=== PATIENT | female | born 1965 | race Caucasian/White ===

== ENCOUNTER 2018-07-13 15:24 | Inpatient (IN) | payer OTHER ==
[~2018-07-13] VITALS: Ht 157.5 cm; Wt 107.6 kg
[~2018-07-13 15:24] MED LIST: AMOX1TAB61 PO; MIDAZOLAM 1 MG/ML, 5ML ONE; PROPOFOL 10 MG/ML, 100ML IV ONE; ROCURONIUM 10 MG/ML,10ML ONE
[2018-07-13] MEDS ORDERED: ALBUTEROL/IPRATROPIUM 2.5MG/0.5MG, 3 ML NPPB PRN (15:30)
[2018-07-13] MEDS ORDERED: ALBUTEROL/IPRATROPIUM 2.5MG/0.5MG, 3 ML ONE (15:42)
[2018-07-13 15:54] LABS: BASOPHILS # (AUTO) 0.09 x10^3/uL (0-0.1); BASOPHILS % (AUTO) 1 % (0-1); EOSINOPHILS # (AUTO) 0.35 x10^3/uL (0-0.4); EOSINOPHILS % (AUTO) 3 % (1-7); LYMPHOCYTES % (AUTO) 23 % (22-44); MD NO; MEAN CORPUSCULAR HEMOGLOBIN 30.1 pg (27.0-34.8); MEAN CORPUSCULAR HGB CONC 32.9 g/dL (32.4-35.8); MEAN CORPUSCULAR VOLUME 91.4 fL (80-100); MEAN PLATELET VOLUME 8.1 fL (7.4-10.4); MONOCYTES # (AUTO) 0.85 x10^3/uL (0.2-0.8); MONOCYTES % (AUTO) 7 % (2-9); NEUTROPHILS # (AUTO) 7.59 x10^3/uL (1.8-6.8); NEUTROPHILS % (AUTO) 66 % (42-75); PLATELET COUNT 342 x10^3/uL (130-400); RED BLOOD COUNT 4.91 x10^6/uL (3.82-5.3); RED CELL DISTRIBUTION WIDTH 15.2 % (9.6-15.2)
[2018-07-13] MEDS ORDERED: methylPREDNISolone SOD SUCC 125 MG/2 ML ONE (15:54)
[2018-07-13] MEDS ORDERED: LORazepam 2 MG/ML, 1ML ONE (15:54)
[2018-07-13] MEDS ORDERED: ALBUTEROL 0.5%, 20ML ONE (15:56)
[2018-07-13] MEDS ORDERED: LORazepam 2 MG/ML, 1ML IVPush ONE (16:00)
[2018-07-13] MEDS ORDERED: methylPREDNISolone SOD SUCC 125 MG/2 ML IVPush ONE (16:00)
[2018-07-13] MEDS ORDERED: MAGNESIUM SULFATE PMX 2GM/50ML 50 ML IV ONE (16:00)
[2018-07-13 16:02] LABS: ALBUMIN 3.5 g/dL (3.4-5.0); ANION GAP 9 mmol/L (5-15); CALCIUM 8.7 mg/dL (8.5-10.1); CHLORIDE 111 mmol/L (98-107); CREATININE 1.47 mg/dL (0.55-1.02)
[2018-07-13 16:06] LABS: TROPONIN I < 0.015 ng/mL (0.000-0.045)
[2018-07-13] MEDS ORDERED: Albuterol Continuous Neb. Aerogen Syringe 50mg/60ml INLINE PRN (16:30)
[2018-07-13] MEDS ORDERED: ALBUTEROL 0.5%, 20ML NPPBCONT SCH (16:30)
[2018-07-13] MEDS ORDERED: SODIUM CHLORIDE FLUSH 10ML SYR IVF PRN (17:30)
[2018-07-13] MEDS ORDERED: ACETAMINOPHEN 325 MG TABLET PO PRN (18:00)
[2018-07-13] MEDS ORDERED: MIDAZOLAM 1 MG/ML, 5ML IVPush ONE (18:00)
[2018-07-13] MEDS ORDERED: DOCUSATE 100 MG CAPSULE PO PRN (18:00)
[2018-07-13] MEDS ORDERED: BISACODYL 10 MG SUPP PR PRN ×2 (18:00→18:30)
[2018-07-13] MEDS ORDERED: hydrALAzine 20 MG/ML, 1ML IVPush PRN (18:00)
[2018-07-13] MEDS ORDERED: ROCURONIUM 10 MG/ML,10ML IVPush ONE (18:02)
[2018-07-13] MEDS ORDERED: FENTANYL PF 100 MCG/2ML ONE (18:11)
[2018-07-13 18:12] LABS: RAPID INFLUENZA A Negative (Negative); RAPID INFLUENZA B Negative (Negative)
[2018-07-13] MEDS ORDERED: LACTULOSE 20 GM/30 ML UDC NG PRN (18:30)
[2018-07-13] MEDS ORDERED: PHARMACY MAY ADJ FOR RENAL FX MC SCH (18:30)
[2018-07-13] MEDS ORDERED: GLUCAGON 1 MG IM PRN (18:30)
[2018-07-13] MEDS ORDERED: SENNOSIDES 8.8 MG/5 ML ORAL SOL NG PRN (18:30)
[2018-07-13] MEDS ORDERED: SENNA/DOCUSATE TABLET NG PRN (18:30)
[2018-07-13] MEDS ORDERED: DEXTROSE 50%, 50ML SYRINGE IVPush PRN (18:30)
[2018-07-13] MEDS ORDERED: FENTANYL PF 100 MCG/2ML IV ONE (18:30)
[2018-07-13] MEDS ORDERED: LIDOCAINE-MPF 1%, 2ML ENDO PRN (18:30)
[2018-07-13] MEDS ORDERED: DEXTROSE 4 GM TAB.CHEW PO PRN (18:30)
[2018-07-13 18:36] LABS: MICROSCOPIC INDICATED
[2018-07-13] MEDS: methylPREDNISolone SOD SUCC 125 MG/2 ML IVPush SCH (18:37)
[2018-07-13] MEDS: HEPARIN 5,000 UNITS/ML, 1ML SQ SCH (18:37)
[2018-07-13] MEDS: SODIUM CHLORIDE 0.9% 1,000 ML IV SCH (18:37)
[2018-07-13 18:44] LABS: CULTURE INDICATED? NO
[2018-07-13 18:45] LABS: BARBITURATE SCREEN, URINE Negative (Negative); BENZODIAZEPINE SCREEN, URINE Positive (Negative); CANNABINOID SCREEN, URINE Negative (Negative); COCAINE SCREEN, URINE Negative (Negative); METHADONE SCREEN, URINE Negative (Negative)
[2018-07-13] MEDS: MIDAZOLAM HCL 25 MG in SODIUM CHLORIDE 0.9% 245 ML IV PRN (18:45)
[2018-07-13 18:47] LABS: AMPHETAMINE SCREEN, URINE Positive (Negative); OPIATE SCREEN, URINE Negative (Negative)
[2018-07-13] MEDS: PROPOFOL 100 ML IV PRN (19:34)
[2018-07-13] MEDS: QUETIAPINE 25MG TABLET PO SCH (19:35)
[2018-07-13] MEDS: SODIUM CHLORIDE FLUSH 10ML SYR IVF SCH (19:36)
[2018-07-13] MEDS: DOXYCYCLINE 100 MG in DEXTROSE 5% 250 ML IV SCH (20:00)
[2018-07-13] MEDS: ALBUTEROL/IPRATROPIUM 2.5MG/0.5MG, 3 ML INLINE SCH (20:21)
[2018-07-13] MEDS ORDERED: INSULIN LISPRO 100 UNITS/ML, PEN SQ-INSULIN SCH (21:00)
[2018-07-13] MEDS ORDERED: FENTANYL PF 100 MCG/2ML IVPush ONE (22:00)
[2018-07-13] MEDS ORDERED: FENTANYL PF 2,500 MCG in SODIUM CHLORIDE 0.9% 200 ML IV PRN (22:00)
[2018-07-14] MEDS: INSULIN LISPRO 100 UNITS/ML, PEN SQ-INSULIN SCH ×4 (00:03→17:32)
[2018-07-14] MEDS: PROPOFOL 100 ML IV PRN ×5 (00:04→23:31)
[2018-07-14] MEDS: methylPREDNISolone SOD SUCC 125 MG/2 ML IVPush SCH ×4 (00:06→17:54)
[2018-07-14] MEDS: ALBUTEROL/IPRATROPIUM 2.5MG/0.5MG, 3 ML INLINE SCH ×7 (00:36→22:30)
[2018-07-14] MEDS: HEPARIN 5,000 UNITS/ML, 1ML SQ SCH ×3 (02:05→17:47)
[2018-07-14] MEDS: SODIUM CHLORIDE 0.9% 1,000 ML IV SCH ×3 (02:32→23:31)
[2018-07-14] MEDS: QUETIAPINE 25MG TABLET PO SCH ×3 (03:47→19:29)
[2018-07-14] MEDS: MIDAZOLAM HCL 25 MG in SODIUM CHLORIDE 0.9% 245 ML IV PRN (03:47)
[2018-07-14 04:00] VITALS: BP 145/83
[2018-07-14 04:53] LABS: ALANINE AMINOTRANSFERASE 32 U/L (12-78); ALBUMIN 3.1 g/dL (3.4-5.0); ANION GAP 10 mmol/L (5-15); CHLORIDE 113 mmol/L (98-107); CREATININE 1.09 mg/dL (0.55-1.02)
[2018-07-14 04:57] LABS: BASOPHILS # (AUTO) 0.01 x10^3/uL (0-0.1); BASOPHILS % (AUTO) 0 % (0-1); EOSINOPHILS % (AUTO) 0 % (1-7); LYMPHOCYTES # (AUTO) 0.66 x10^3/uL (1-3.4); LYMPHOCYTES % (AUTO) 7 % (22-44); MD NO; MEAN CORPUSCULAR HEMOGLOBIN 30.5 pg (27.0-34.8); MEAN CORPUSCULAR VOLUME 92.4 fL (80-100); MEAN PLATELET VOLUME 8.2 fL (7.4-10.4); MONOCYTES # (AUTO) 0.05 x10^3/uL (0.2-0.8); MONOCYTES % (AUTO) 1 % (2-9); NEUTROPHILS # (AUTO) 8.19 x10^3/uL (1.8-6.8); NEUTROPHILS % (AUTO) 92 % (42-75); PLATELET COUNT 281 x10^3/uL (130-400); RED BLOOD COUNT 4.44 x10^6/uL (3.82-5.3); RED CELL DISTRIBUTION WIDTH 15.4 % (9.6-15.2)
[2018-07-14 05:04] LABS: ALKALINE PHOSPHATASE 94 U/L (45-117); BILIRUBIN,TOTAL 0.2 mg/dL (0.2-1.0); TOTAL PROTEIN 7.4 g/dL (6.4-8.2)
[2018-07-14] MEDS: DOXYCYCLINE 100 MG in DEXTROSE 5% 250 ML IV SCH ×2 (05:58→17:45)
[2018-07-14] MEDS: PANTOPRAZOLE 40 MG IV IVPush SCH (07:48)
[2018-07-14] MEDS: SODIUM CHLORIDE FLUSH 10ML SYR IVF SCH ×2 (09:00→20:28)
[2018-07-14] MEDS ORDERED: DEXMEDETOMIDINE 1,000 MCG in SODIUM CHLORIDE 0.9% 240 ML IV PRN (15:30)
[2018-07-15] MEDS: methylPREDNISolone SOD SUCC 125 MG/2 ML IVPush SCH ×4 (00:05→18:07)
[2018-07-15] MEDS: INSULIN LISPRO 100 UNITS/ML, PEN SQ-INSULIN SCH ×5 (00:06→23:41)
[2018-07-15] MEDS: HEPARIN 5,000 UNITS/ML, 1ML SQ SCH ×3 (02:13→18:07)
[2018-07-15] MEDS: QUETIAPINE 25MG TABLET PO SCH ×2 (02:13→11:00)
[2018-07-15] MEDS: ALBUTEROL/IPRATROPIUM 2.5MG/0.5MG, 3 ML INLINE SCH (02:30)
[2018-07-15 04:43] LABS: ALANINE AMINOTRANSFERASE 25 U/L (12-78); ALBUMIN 2.7 g/dL (3.4-5.0); ANION GAP 10 mmol/L (5-15); CHLORIDE 114 mmol/L (98-107); CREATININE 1.28 mg/dL (0.55-1.02)
[2018-07-15 04:46] LABS: ALKALINE PHOSPHATASE 75 U/L (45-117); BILIRUBIN,TOTAL 0.4 mg/dL (0.2-1.0); TOTAL PROTEIN 6.5 g/dL (6.4-8.2)
[2018-07-15 05:07] LABS: BASOPHILS # (AUTO) 0.03 x10^3/uL (0-0.1); BASOPHILS % (AUTO) 0 % (0-1); EOSINOPHILS % (AUTO) 0 % (1-7); LYMPHOCYTES % (AUTO) 6 % (22-44); MD SCAN; MEAN CORPUSCULAR HEMOGLOBIN 30.4 pg (27.0-34.8); MEAN CORPUSCULAR HGB CONC 33.1 g/dL (32.4-35.8); MEAN CORPUSCULAR VOLUME 91.8 fL (80-100); MEAN PLATELET VOLUME 8.4 fL (7.4-10.4); MONOCYTES # (AUTO) 0.55 x10^3/uL (0.2-0.8); MONOCYTES % (AUTO) 3 % (2-9); NEUTROPHILS # (AUTO) 14.63 x10^3/uL (1.8-6.8); NEUTROPHILS % (AUTO) 91 % (42-75); PLATELET COUNT 237 x10^3/uL (130-400); RED BLOOD COUNT 4.42 x10^6/uL (3.82-5.3); RED CELL DISTRIBUTION WIDTH 15.1 % (9.6-15.2)
[2018-07-15] MEDS: DOXYCYCLINE 100 MG in DEXTROSE 5% 250 ML IV SCH ×2 (05:31→18:07)
[2018-07-15] MEDS ORDERED: ALBUTEROL/IPRATROPIUM 2.5MG/0.5MG, 3 ML INLINE SCH (07:00)
[2018-07-15] MEDS ORDERED: CALCIUM GLUCONATE 4.6 MEQ in SODIUM CHLORIDE 0.9% 50 ML IV ONE (07:30)
[2018-07-15] MEDS: ALBUTEROL/IPRATROPIUM 2.5MG/0.5MG, 3 ML NPPB SCH ×3 (09:44→19:33)
[2018-07-15] MEDS: PANTOPRAZOLE 40 MG IV IVPush SCH (10:08)
[2018-07-15] MEDS: SODIUM CHLORIDE FLUSH 10ML SYR IVF SCH ×2 (10:08→23:40)
[2018-07-15] MEDS: SODIUM CHLORIDE 0.9% 1,000 ML IV SCH (10:09)
[2018-07-16] MEDS: methylPREDNISolone SOD SUCC 125 MG/2 ML IVPush SCH ×3 (00:23→12:12)
[2018-07-16] MEDS: HEPARIN 5,000 UNITS/ML, 1ML SQ SCH (02:03)
[2018-07-16 05:02] LABS: BASOPHILS # (AUTO) 0.01 x10^3/uL (0-0.1); BASOPHILS % (AUTO) 0 % (0-1); EOSINOPHILS % (AUTO) 0 % (1-7); LYMPHOCYTES # (AUTO) 0.82 x10^3/uL (1-3.4); LYMPHOCYTES % (AUTO) 5 % (22-44); MD NO; MEAN CORPUSCULAR HEMOGLOBIN 30.7 pg (27.0-34.8); MEAN CORPUSCULAR HGB CONC 33.3 g/dL (32.4-35.8); MEAN CORPUSCULAR VOLUME 92.2 fL (80-100); MEAN PLATELET VOLUME 8.1 fL (7.4-10.4); MONOCYTES # (AUTO) 0.52 x10^3/uL (0.2-0.8); MONOCYTES % (AUTO) 3 % (2-9); NEUTROPHILS # (AUTO) 14.46 x10^3/uL (1.8-6.8); NEUTROPHILS % (AUTO) 92 % (42-75); PLATELET COUNT 260 x10^3/uL (130-400); RED BLOOD COUNT 4.53 x10^6/uL (3.82-5.3); RED CELL DISTRIBUTION WIDTH 14.9 % (9.6-15.2)
[2018-07-16 05:13] LABS: ANION GAP 7 mmol/L (5-15); CALCIUM 8.4 mg/dL (8.5-10.1); CHLORIDE 111 mmol/L (98-107)
[2018-07-16 05:16] LABS: CREATININE 0.99 mg/dL (0.55-1.02); TRIGLYCERIDES 76 mg/dL (50-200)
[2018-07-16] MEDS: INSULIN LISPRO 100 UNITS/ML, PEN SQ-INSULIN SCH (05:30)
[2018-07-16] MEDS: DOXYCYCLINE 100 MG in DEXTROSE 5% 250 ML IV SCH (06:48)
[2018-07-16] MEDS: ALBUTEROL/IPRATROPIUM 2.5MG/0.5MG, 3 ML NPPB SCH ×2 (07:00→11:00)
[2018-07-16] MEDS: AMLODIPINE 5 MG TABLET PO SCH ×2 (08:56→21:08)
[2018-07-16] MEDS: PANTOPRAZOLE 40 MG IV IVPush SCH (08:56)
[2018-07-16] MEDS: SODIUM CHLORIDE FLUSH 10ML SYR IVF SCH ×2 (08:57→21:07)
[2018-07-16] MEDS: DOXYCYCLINE 100MG TABLET PO SCH ×2 (09:00→21:08)
[2018-07-16] MEDS ORDERED: BUDESONIDE 0.5 MG/2 ML INHA HHN SCH (09:00)
[2018-07-16] MEDS: ENOXAPARIN 40 MG/0.4 ML SQ SCH (09:49)
[2018-07-16] MEDS ORDERED: ALBUTEROL SULFATE 2.5 MG/3 ML HHN SCH (11:00)
[2018-07-16 17:34] VITALS: BP 149/83
[2018-07-16 20:04] VITALS: BP 132/75
[2018-07-17 00:22] VITALS: BP 145/94
[2018-07-17 05:28] LABS: BASOPHILS # (AUTO) 0.02 x10^3/uL (0-0.1); BASOPHILS % (AUTO) 0 % (0-1); EOSINOPHILS % (AUTO) 0 % (1-7); LYMPHOCYTES # (AUTO) 1.66 x10^3/uL (1-3.4); LYMPHOCYTES % (AUTO) 11 % (22-44); MD NO; MEAN CORPUSCULAR HEMOGLOBIN 30.1 pg (27.0-34.8); MEAN CORPUSCULAR HGB CONC 32.9 g/dL (32.4-35.8); MEAN CORPUSCULAR VOLUME 91.4 fL (80-100); MEAN PLATELET VOLUME 8.2 fL (7.4-10.4); MONOCYTES # (AUTO) 1.24 x10^3/uL (0.2-0.8); MONOCYTES % (AUTO) 8 % (2-9); NEUTROPHILS # (AUTO) 12.86 x10^3/uL (1.8-6.8); NEUTROPHILS % (AUTO) 82 % (42-75); PLATELET COUNT 247 x10^3/uL (130-400); RED BLOOD COUNT 4.99 x10^6/uL (3.82-5.3); RED CELL DISTRIBUTION WIDTH 15.4 % (9.6-15.2)
[2018-07-17 05:40] LABS: ALANINE AMINOTRANSFERASE 60 U/L (12-78); ALBUMIN 3.2 g/dL (3.4-5.0); ANION GAP 7 mmol/L (5-15); CALCIUM 8.8 mg/dL (8.5-10.1); CHLORIDE 105 mmol/L (98-107); CREATININE 1.07 mg/dL (0.55-1.02)
[2018-07-17 05:42] LABS: ALKALINE PHOSPHATASE 80 U/L (45-117); BILIRUBIN,TOTAL 0.6 mg/dL (0.2-1.0); TOTAL PROTEIN 7.6 g/dL (6.4-8.2)
[2018-07-17] MEDS: ALBUTEROL/IPRATROPIUM 2.5MG/0.5MG, 3 ML NPPB PRN ×2 (06:20→10:35)
[2018-07-17 07:48] VITALS: BP 158/88
[2018-07-17] MEDS: DOXYCYCLINE 100MG TABLET PO SCH ×2 (08:37→20:55)
[2018-07-17] MEDS: AMLODIPINE 5 MG TABLET PO SCH ×2 (08:37→20:55)
[2018-07-17] MEDS: PANTOPROZOLE 40MG TABLET PO SCH (08:37)
[2018-07-17] MEDS: ENOXAPARIN 40 MG/0.4 ML SQ SCH (08:38)
[2018-07-17] MEDS: SODIUM CHLORIDE FLUSH 10ML SYR IVF SCH ×2 (09:00→20:55)
[2018-07-17 13:20] VITALS: BP 123/75
[2018-07-17] MEDS ORDERED: MAGNESIUM SULFATE PMX 2GM/50ML 50 ML IV ONE (14:00)
[2018-07-17] MEDS: ALBUTEROL/IPRATROPIUM 2.5MG/0.5MG, 3 ML NPPB SCH ×2 (14:10→20:00)
[2018-07-17] MEDS: ASPIRIN 81 MG TABLET EC PO SCH (14:30)
[2018-07-17 21:20] VITALS: BP 130/73
[2018-07-18 03:19] VITALS: BP 158/89
[2018-07-18 05:59] LABS: BASOPHILS # (AUTO) 0.05 x10^3/uL (0-0.1); BASOPHILS % (AUTO) 0 % (0-1); EOSINOPHILS # (AUTO) 0.02 x10^3/uL (0-0.4); EOSINOPHILS % (AUTO) 0 % (1-7); LYMPHOCYTES # (AUTO) 2.33 x10^3/uL (1-3.4); LYMPHOCYTES % (AUTO) 18 % (22-44); MD NO; MEAN CORPUSCULAR HEMOGLOBIN 29.8 pg (27.0-34.8); MEAN CORPUSCULAR HGB CONC 32.8 g/dL (32.4-35.8); MEAN CORPUSCULAR VOLUME 90.9 fL (80-100); MEAN PLATELET VOLUME 7.6 fL (7.4-10.4); MONOCYTES # (AUTO) 1.09 x10^3/uL (0.2-0.8); MONOCYTES % (AUTO) 9 % (2-9); NEUTROPHILS # (AUTO) 9.34 x10^3/uL (1.8-6.8); NEUTROPHILS % (AUTO) 73 % (42-75); PLATELET COUNT 258 x10^3/uL (130-400); RED BLOOD COUNT 5.27 x10^6/uL (3.82-5.3); RED CELL DISTRIBUTION WIDTH 15.3 % (9.6-15.2)
[2018-07-18 06:13] LABS: ANION GAP 7 mmol/L (5-15); CALCIUM 7.6 mg/dL (8.5-10.1); CHLORIDE 107 mmol/L (98-107)
[2018-07-18 06:17] LABS: ALANINE AMINOTRANSFERASE 104 U/L (12-78); ALKALINE PHOSPHATASE 75 U/L (45-117); BILIRUBIN,TOTAL 0.6 mg/dL (0.2-1.0); CREATININE 0.93 mg/dL (0.55-1.02); TOTAL PROTEIN 6.9 g/dL (6.4-8.2)
[2018-07-18 06:33] VITALS: BP 147/76
[2018-07-18] MEDS: ALBUTEROL/IPRATROPIUM 2.5MG/0.5MG, 3 ML NPPB SCH ×4 (07:30→18:29)
[2018-07-18] MEDS: AMLODIPINE 5 MG TABLET PO SCH ×2 (08:46→22:48)
[2018-07-18] MEDS: PANTOPROZOLE 40MG TABLET PO SCH (08:47)
[2018-07-18] MEDS: ENOXAPARIN 40 MG/0.4 ML SQ SCH (08:47)
[2018-07-18] MEDS: ASPIRIN 81 MG TABLET EC PO SCH (08:47)
[2018-07-18] MEDS: DOXYCYCLINE 100MG TABLET PO SCH ×2 (08:47→22:48)
[2018-07-18] MEDS: SODIUM CHLORIDE FLUSH 10ML SYR IVF SCH ×2 (08:48→22:45)
[2018-07-18 12:30] VITALS: BP 137/86
[2018-07-18] MEDS ORDERED: MAGNESIUM SULFATE 6 GM in SODIUM CHLORIDE 0.9% 150 ML IV ONE (15:30)
[2018-07-18 19:02] VITALS: BP 105/67
[2018-07-19 03:43] VITALS: BP 139/91
[2018-07-19 05:40] LABS: CHLORIDE 107 mmol/L (98-107)
[2018-07-19 05:46] LABS: ANION GAP 8 mmol/L (5-15); CALCIUM 7.6 mg/dL (8.5-10.1); CREATININE 0.99 mg/dL (0.55-1.02)
[2018-07-19] MEDS: ALBUTEROL/IPRATROPIUM 2.5MG/0.5MG, 3 ML NPPB SCH ×4 (06:40→20:00)
[2018-07-19 06:53] VITALS: BP 148/79
[2018-07-19] MEDS: AMLODIPINE 5 MG TABLET PO SCH ×2 (08:23→20:57)
[2018-07-19] MEDS: ENOXAPARIN 40 MG/0.4 ML SQ SCH (08:23)
[2018-07-19] MEDS: PANTOPROZOLE 40MG TABLET PO SCH (08:24)
[2018-07-19] MEDS: DOXYCYCLINE 100MG TABLET PO SCH ×2 (08:24→20:57)
[2018-07-19] MEDS: SODIUM CHLORIDE FLUSH 10ML SYR IVF SCH ×2 (08:24→20:58)
[2018-07-19] MEDS: ASPIRIN 81 MG TABLET EC PO SCH (08:24)
[2018-07-19] MEDS ORDERED: METOPROLOL TARTRATE 25 MG TABLET ONE (08:45)
[2018-07-19] MEDS: METOPROLOL TARTRATE 25 MG TABLET PO SCH ×2 (08:48→20:58)
[2018-07-19 12:50] VITALS: BP 120/77
[2018-07-19 19:56] VITALS: BP 114/72
[2018-07-19 20:53] VITALS: BP 112/57
[2018-07-20 03:27] VITALS: BP 108/62
[2018-07-20 06:15] VITALS: BP 138/82
[2018-07-20] MEDS: METOPROLOL TARTRATE 25 MG TABLET PO SCH (06:20)
[2018-07-20] MEDS: ALBUTEROL/IPRATROPIUM 2.5MG/0.5MG, 3 ML NPPB SCH (07:00)
[2018-07-20 07:05] VITALS: BP 117/75
[2018-07-20] MEDS: ASPIRIN 81 MG TABLET EC PO SCH (08:56)
[2018-07-20] MEDS: AMLODIPINE 5 MG TABLET PO SCH (08:57)
[2018-07-20] MEDS: PANTOPROZOLE 40MG TABLET PO SCH (08:57)
[2018-07-20] MEDS: DOXYCYCLINE 100MG TABLET PO SCH (08:57)
[2018-07-20] MEDS ORDERED: METO25TA35 PO (09:38)
[2018-07-20] MEDS ORDERED: DOXY100T PO (09:38)
[2018-07-20] MEDS ORDERED: ASPI81TA45 PO (09:38)
[2018-07-20] MEDS ORDERED: AMLO-150 PO (09:38)
[2018-07-20] MEDS ORDERED: ALBU90AE INH (09:38)
[2018-07-20] MEDS ORDERED: PRED5TAB PO (09:38)
[2018-07-21] MEDS ORDERED: DOXY100T PO (14:39)
[2018-07-21] MEDS ORDERED: AMOX1TAB61 PO (14:39)
[2018-07-21] MEDS ORDERED: ALBU90AE INH (14:39)
[2018-07-21] MEDS ORDERED: AMLO-150 PO (14:39)
[2018-07-21] MEDS ORDERED: METO25TA35 PO (14:39)
[2018-07-21] MEDS ORDERED: ASPI81TA45 PO (14:39)
[2018-07-21] MEDS ORDERED: PRED5TAB PO (14:39)
== END 2018-07-20 11:35 | disposition home or self-care (01) | DRG 208 ==
LOC: ED 16:31 → EDIP 17:29 → CCU 17:45 → 5SO 07-16 17:03
PROVIDERS: ADMIT Hospitalist; ATTEND Family Medicine
PROC: 5A1935Z Respiratory Ventilation, Less than 24 Consecutive Hours (ICD-10-PCS; principal; 2018-07-13)
PROC: 0BH18EZ Insertion of Endotracheal Airway into Trachea, Via Natural or Artificial Opening Endoscopic (ICD-10-PCS; 2018-07-13)
PROC: 0T9B70Z Drainage of Bladder with Drainage Device, Via Natural or Artificial Opening (ICD-10-PCS; 2018-07-13)
DX: J96.01 Acute respiratory failure with hypoxia (principal); G92 Toxic encephalopathy; J44.1 Chronic obstructive pulmonary disease with (acute) exacerbation; N17.9 Acute kidney failure, unspecified; J98.11 Atelectasis; I47.1 Supraventricular tachycardia; Z99.11 Dependence on respirator [ventilator] status; F14.90 Cocaine use, unspecified, uncomplicated; F15.90 Other stimulant use, unspecified, uncomplicated; I48.0 Paroxysmal atrial fibrillation; I10 Essential (primary) hypertension; E83.42 Hypomagnesemia; E87.5 Hyperkalemia; F17.210 Nicotine dependence, cigarettes, uncomplicated; F41.9 Anxiety disorder, unspecified; I07.1 Rheumatic tricuspid insufficiency
CPT/HCPCS: 36415; 36600; 84145; 87400; 99285; J7620; 0399T; 71045; 80048; 80053; 80307; 81001; 82040; 82803; 82962; 83735; 83880; 84100; 84132; 84443; 84478; 84484; 85025; 87040; 87070; 87081; 87205; 93005; 93306; 94002; 94003; 94640; 94644; 96374; 96375; G0378; J0610; J1644; J1650; J2250; J2704; J3010; J3475; J7060; C9113; J0360; J1815; J2060; J2930; J7030; J7050; J7512

== ENCOUNTER 2018-12-11 16:24 | Inpatient (IN) | payer MEDICAID ==
[~2018-12-11] VITALS: Ht 152.4 cm; Wt 104.8 kg
[~2018-12-11 16:24] MED LIST changes: +ALBU90AE INH; +AMLO-150 PO; +ASPI81TA45 PO; +DOXY100T PO; +METO25TA35 PO; -MIDAZOLAM 1 MG/ML, 5ML ONE; +PRED5TAB PO; -PROPOFOL 10 MG/ML, 100ML IV ONE; -ROCURONIUM 10 MG/ML,10ML ONE
[2018-12-11] MEDS ORDERED: SODIUM CHLORIDE FLUSH 10ML SYR IVF ONE (16:30)
[2018-12-11] MEDS ORDERED: methylPREDNISolone SOD SUCC 125 MG/2 ML IVP ONE (16:30)
--- NOTE | 2018-12-11 16:45 | NUR ---
BIB [facility] for SOB, hx COPD, CHF, hx intubation "years ago" per pt. Pt extremely anxious on arrival, RT at bedside, EKG complete, tech at bedside for IV start. Pt becoming calmer, able to make full sentences, pt wheezy in all lung pappas.
[2018-12-11] MEDS ORDERED: ALBUTEROL/IPRATROPIUM 2.5MG/0.5MG, 3 ML ONE (16:50)
[2018-12-11] MEDS ORDERED: methylPREDNISolone SOD SUCC 125 MG/2 ML ONE (16:50)
[2018-12-11] MEDS ORDERED: PLEASE ENTER HEIGHT AND WEIGHT MC SCH (17:00)
[2018-12-11] MEDS: ALBUTEROL/IPRATROPIUM 2.5MG/0.5MG, 3 ML NPPB SCH (17:07)
[2018-12-11 17:13] LABS: BASOPHILS # (AUTO) 0.06 x10^3/uL (0-0.1); BASOPHILS % (AUTO) 1 % (0-1); EOSINOPHILS # (AUTO) 0.25 x10^3/uL (0-0.4); EOSINOPHILS % (AUTO) 2 % (1-7); LYMPHOCYTES # (AUTO) 2.32 x10^3/uL (1-3.4); LYMPHOCYTES % (AUTO) 21 % (22-44); MD NO; MEAN CORPUSCULAR HEMOGLOBIN 29.5 pg (27.0-34.8); MEAN CORPUSCULAR HGB CONC 33.2 g/dL (32.4-35.8); MEAN PLATELET VOLUME 7.7 fL (7.4-10.4); MONOCYTES # (AUTO) 0.79 x10^3/uL (0.2-0.8); MONOCYTES % (AUTO) 7 % (2-9); NEUTROPHILS # (AUTO) 7.73 x10^3/uL (1.8-6.8); NEUTROPHILS % (AUTO) 69 % (42-75); PLATELET COUNT 300 x10^3/uL (130-400); RED BLOOD COUNT 4.85 x10^6/uL (3.82-5.3); RED CELL DISTRIBUTION WIDTH 14.8 % (9.6-15.2)
[2018-12-11 17:20] LABS: ALANINE AMINOTRANSFERASE 53 U/L (12-78); ALBUMIN 3.4 g/dL (3.4-5.0); ANION GAP 9 mmol/L (5-15); CALCIUM 8.3 mg/dL (8.5-10.1); CHLORIDE 112 mmol/L (98-107); CREATININE 1.48 mg/dL (0.55-1.02)
[2018-12-11 17:24] LABS: ALKALINE PHOSPHATASE 117 U/L (45-117); BILIRUBIN,TOTAL 0.5 mg/dL (0.2-1.0); TOTAL PROTEIN 6.9 g/dL (6.4-8.2); TROPONIN I 0.032 ng/mL (0.000-0.045)
--- NOTE | 2018-12-11 17:41 | NUR ---
Pt given ice chips per request, pt initally sleeping when RN entered room, sats remain above 94%, no obv acute resp distress noted at this time.
--- NOTE | 2018-12-11 19:03 | NUR ---
report received from galdino viveros.
--- NOTE | 2018-12-11 19:07 | NUR ---
pt provided some water at this time.
--- NOTE | 2018-12-11 20:19 | NUR ---
bedside commodo at bedside now.
--- NOTE | 2018-12-11 20:39 | NUR ---
pt using bedside commodo at this time.
--- NOTE | 2018-12-11 20:51 | NUR ---
pt resting in [facility]. all monitors in place. call light within reach. pt's aox4.
[2018-12-11] MEDS ORDERED: LORazepam 2 MG/ML, 1ML ONE (21:17)
--- NOTE | 2018-12-11 21:25 | NUR ---
pt medicated per emar. pt tolerated well. pt's aox4. resps even and unlabored.
[2018-12-11] MEDS ORDERED: LORazepam 2 MG/ML, 1ML IVPush ONE (21:30)
--- NOTE | 2018-12-11 21:35 | NUR ---
report given margi viveros. all questions answered.
[2018-12-11] MEDS ORDERED: SODIUM CHLORIDE 0.9% 1,000 ML IV SCH (21:39)
[2018-12-11 21:58] VITALS: BP 155/90
[2018-12-11] MEDS ORDERED: ONDANSETRON ODT 4 MG PO PRN (22:00)
[2018-12-11] MEDS ORDERED: LABETALOL 5MG/ML, 20ML IVPush PRN (22:00)
[2018-12-11] MEDS ORDERED: LIDODERM 5% PATCH TD PRN (22:00)
[2018-12-11] MEDS ORDERED: DOCUSATE 100 MG CAPSULE PO PRN (22:00)
[2018-12-11] MEDS ORDERED: TEMAZEPAM 15 MG CAPSULE PO PRN (22:00)
[2018-12-11] MEDS: IBUPROFEN 600 MG TABLET PO PRN (22:36)
[2018-12-12 00:14] LABS: AMPHETAMINE SCREEN, URINE Positive (Negative); BARBITURATE SCREEN, URINE Negative (Negative); BENZODIAZEPINE SCREEN, URINE Negative (Negative); CANNABINOID SCREEN, URINE Negative (Negative); COCAINE SCREEN, URINE Negative (Negative); METHADONE SCREEN, URINE Negative (Negative); OPIATE SCREEN, URINE Negative (Negative)
[2018-12-12 00:33] LABS: TROPONIN I 0.079 ng/mL (0.000-0.045)
[2018-12-12 01:30] VITALS: BP 146/81
[2018-12-12 05:30] LABS: BASOPHILS % (AUTO) 0 % (0-1); EOSINOPHILS # (AUTO) 0.02 x10^3/uL (0-0.4); EOSINOPHILS % (AUTO) 0 % (1-7); LYMPHOCYTES # (AUTO) 0.98 x10^3/uL (1-3.4); LYMPHOCYTES % (AUTO) 13 % (22-44); MD NO; MEAN CORPUSCULAR HEMOGLOBIN 29.4 pg (27.0-34.8); MEAN CORPUSCULAR HGB CONC 32.9 g/dL (32.4-35.8); MEAN CORPUSCULAR VOLUME 89.5 fL (80-100); MEAN PLATELET VOLUME 8.2 fL (7.4-10.4); MONOCYTES # (AUTO) 0.07 x10^3/uL (0.2-0.8); MONOCYTES % (AUTO) 1 % (2-9); NEUTROPHILS # (AUTO) 6.57 x10^3/uL (1.8-6.8); NEUTROPHILS % (AUTO) 86 % (42-75); PLATELET COUNT 259 x10^3/uL (130-400); RED CELL DISTRIBUTION WIDTH 15.1 % (9.6-15.2)
[2018-12-12 05:33] LABS: ANION GAP 9 mmol/L (5-15); CALCIUM 8.9 mg/dL (8.5-10.1); CHLORIDE 110 mmol/L (98-107); CREATININE 1.22 mg/dL (0.55-1.02)
[2018-12-12 05:36] LABS: TROPONIN I 0.079 ng/mL (0.000-0.045)
[2018-12-12] MEDS: ALBUTEROL SULFATE 2.5 MG/3 ML NPPB SCH ×4 (07:40→23:30)
[2018-12-12] MEDS: BUDESONIDE 0.5 MG/2 ML INHA NPPB SCH ×2 (07:40→20:43)
[2018-12-12 08:26] VITALS: BP 136/88
[2018-12-12] MEDS: AZITHROMYCIN 500 MG TABLET PO SCH (12:16)
[2018-12-12] MEDS: POTASSIUM CHLORIDE 20 MEQ TAB.ER.PRT PO SCH (12:16)
[2018-12-12] MEDS: methylPREDNISolone SOD SUCC 125 MG/2 ML IVPush SCH ×2 (12:16→18:25)
[2018-12-12 13:00] VITALS: BP 133/90
[2018-12-12] MEDS: FUROSEMIDE 20 MG/2 ML IV SCH (17:33)
[2018-12-12 18:51] VITALS: BP 136/85
[2018-12-13] MEDS: methylPREDNISolone SOD SUCC 125 MG/2 ML IVPush SCH ×2 (00:05→06:16)
[2018-12-13 01:14] VITALS: BP 136/83
[2018-12-13 07:05] VITALS: BP 173/96
[2018-12-13] MEDS: ALBUTEROL SULFATE 2.5 MG/3 ML NPPB SCH ×4 (07:10→22:09)
[2018-12-13] MEDS: BUDESONIDE 0.5 MG/2 ML INHA NPPB SCH ×2 (07:10→19:55)
[2018-12-13] MEDS: FUROSEMIDE 20 MG/2 ML IV SCH ×2 (07:44→17:29)
[2018-12-13] MEDS: AZITHROMYCIN 500 MG TABLET PO SCH (09:00)
[2018-12-13] MEDS: POTASSIUM CHLORIDE 20 MEQ TAB.ER.PRT PO SCH (09:07)
[2018-12-13 09:25] VITALS: BP 149/89
[2018-12-13] MEDS ORDERED: MAGNESIUM SULFATE PMX 2GM/50ML 50 ML IV ONE (09:30)
[2018-12-13] MEDS: methylPREDNISolone SOD SUCC 40 MG/ML IVPush SCH ×3 (09:46→21:05)
[2018-12-13 09:49] VITALS: BP 151/86
[2018-12-13 13:25] VITALS: BP 153/87
[2018-12-13 19:26] VITALS: BP 137/85
[2018-12-14 01:45] VITALS: BP 163/102
[2018-12-14] MEDS: methylPREDNISolone SOD SUCC 40 MG/ML IVPush SCH ×4 (03:32→21:18)
[2018-12-14] MEDS: ALBUTEROL SULFATE 2.5 MG/3 ML NPPB SCH ×4 (04:46→19:40)
[2018-12-14 05:39] LABS: ANION GAP 7 mmol/L (5-15); CALCIUM 9.2 mg/dL (8.5-10.1); CHLORIDE 103 mmol/L (98-107); CREATININE 1.04 mg/dL (0.55-1.02)
[2018-12-14 06:41] VITALS: BP 157/98
[2018-12-14] MEDS: FUROSEMIDE 20 MG/2 ML IV SCH ×2 (07:53→17:48)
[2018-12-14] MEDS: POTASSIUM CHLORIDE 20 MEQ TAB.ER.PRT PO SCH (09:39)
[2018-12-14] MEDS: AZITHROMYCIN 500 MG TABLET PO SCH (09:39)
[2018-12-14] MEDS ORDERED: DOXYCYCLINE 100MG TABLET PO SCH (11:00)
[2018-12-14] MEDS ORDERED: MAGNESIUM OXIDE 400 MG TABLET PO SCH (11:00)
[2018-12-14] MEDS: CEFTRIAXONE PMX 2GM/50ML 50 ML IV SCH (12:16)
[2018-12-14] MEDS: ASPIRIN 81 MG TABLET EC PO SCH (12:17)
[2018-12-14 13:53] VITALS: BP 129/84
[2018-12-14] MEDS ORDERED: LABETALOL 100 MG TABLET PO SCH (14:00)
[2018-12-14] MEDS: BUDESONIDE 0.5 MG/2 ML INHA NPPB SCH ×2 (14:20→19:41)
[2018-12-14] MEDS ORDERED: LABETALOL 100 MG TABLET ONE (15:07)
[2018-12-14 15:10] VITALS: BP 126/86
[2018-12-14] MEDS ORDERED: LABETALOL 100 MG TABLET PO ONE (15:30)
[2018-12-14] MEDS ORDERED: METOPROLOL TARTRATE 50 MG TABLET PO SCH (18:00)
[2018-12-14 18:39] VITALS: BP 107/67
[2018-12-14 18:42] LABS: MICROSCOPIC INDICATED
[2018-12-14 18:51] LABS: CULTURE INDICATED? NO
[2018-12-14] MEDS: DOXYCYCLINE 100MG TABLET PO SCH (21:17)
[2018-12-14] MEDS: MAGNESIUM OXIDE 400 MG TABLET PO SCH (21:17)
[2018-12-14] MEDS: LABETALOL 100 MG TABLET PO SCH (21:18)
[2018-12-14 21:23] VITALS: BP 105/70
[2018-12-15] MEDS: ALBUTEROL SULFATE 2.5 MG/3 ML NPPB SCH ×3 (02:45→14:27)
[2018-12-15 03:30] VITALS: BP 107/73
[2018-12-15] MEDS: methylPREDNISolone SOD SUCC 40 MG/ML IVPush SCH ×3 (04:03→16:07)
[2018-12-15 05:52] LABS: CHLORIDE 101 mmol/L (98-107)
[2018-12-15 05:57] LABS: ANION GAP 9 mmol/L (5-15); CALCIUM 8.5 mg/dL (8.5-10.1); CREATININE 1.31 mg/dL (0.55-1.02)
[2018-12-15] MEDS: ASPIRIN 81 MG TABLET EC PO SCH (06:32)
[2018-12-15] MEDS: LABETALOL 100 MG TABLET PO SCH ×2 (06:32→15:06)
[2018-12-15 07:21] VITALS: BP 123/81
[2018-12-15] MEDS: POTASSIUM CHLORIDE 20 MEQ TAB.ER.PRT PO SCH (08:36)
[2018-12-15] MEDS: DOXYCYCLINE 100MG TABLET PO SCH (08:36)
[2018-12-15] MEDS: MAGNESIUM OXIDE 400 MG TABLET PO SCH (08:36)
[2018-12-15] MEDS ORDERED: REGADENOSON 0.4 MG/5 ML SYRINGE ONE (08:51)
[2018-12-15] MEDS: BUDESONIDE 0.5 MG/2 ML INHA NPPB SCH (09:00)
[2018-12-15] MEDS: IBUPROFEN 600 MG TABLET PO PRN (11:29)
[2018-12-15] MEDS: CEFTRIAXONE PMX 2GM/50ML 50 ML IV SCH (11:37)
[2018-12-15] MEDS: FUROSEMIDE 20 MG/2 ML IV SCH ×2 (11:37→17:09)
[2018-12-15 13:30] VITALS: BP 124/84
[2018-12-15] MEDS ORDERED: POTA20TA14 PO (14:46)
[2018-12-15] MEDS ORDERED: TIOT18CA INH (14:46)
[2018-12-15] MEDS ORDERED: LABE100T6 PO (14:46)
[2018-12-15] MEDS ORDERED: FLUT1DIS3 INH (14:46)
[2018-12-15] MEDS ORDERED: PRED10TA PO (14:46)
[2018-12-15] MEDS ORDERED: ASPI81TA45 PO (14:46)
[2018-12-15] MEDS ORDERED: DOXY100T PO (14:46)
[2018-12-15] MEDS ORDERED: CEFD300C37 PO (14:46)
[2018-12-15] MEDS ORDERED: FURO-92 PO (14:46)
[2018-12-15] MEDS ORDERED: MAGN400T50 PO (14:46)
[2018-12-15 15:06] VITALS: BP 118/66
[2018-12-15] MEDS ORDERED: IPRA3AMP30 INH (16:09)
== END 2018-12-15 18:06 | disposition home or self-care (01) | DRG 682 ==
LOC: ED 17:29 → EDIP 21:09 → 4WST 21:48 → 5SO 12-14 13:38
PROVIDERS: ADMIT Family Medicine; ATTEND Internal Medicine
DX: N17.0 Acute kidney failure with tubular necrosis (principal); J96.00 Acute respiratory failure, unspecified whether with hypoxia or hypercapnia; I50.33 Acute on chronic diastolic (congestive) heart failure; F15.93 Other stimulant use, unspecified with withdrawal; I47.1 Supraventricular tachycardia; Z68.42 Body mass index [BMI] 45.0-49.9, adult; F17.200 Nicotine dependence, unspecified, uncomplicated; E83.42 Hypomagnesemia; E66.01 Morbid (severe) obesity due to excess calories; J43.9 Emphysema, unspecified; F14.10 Cocaine abuse, uncomplicated; I07.1 Rheumatic tricuspid insufficiency; Z79.899 Other long term (current) drug therapy
CPT/HCPCS: 36415; 99285; J7613; J7620; J7626; 71045; 78452; 80048; 80053; 80307; 81001; 83735; 83880; 84100; 84484; 85025; 93005; 93017; 94640; 96374; 96375; G0378; J0696; J2785; A9502; C9898; J1940; J2060; J2920; J2930; J3475; J7030; J7512

== ENCOUNTER 2019-06-18 10:12 | Inpatient (IN) | payer MEDICAID ==
[~2019-06-18] VITALS: Ht 152.4 cm; Wt 110.0 kg
[~2019-06-18 10:12] MED LIST changes: +CEFD300C37 PO; +FLUT1DIS3 INH; +FURO-92 PO; +IPRA3AMP30 INH; +LABE100T6 PO; +MAGN400T50 PO; +POTA20TA14 PO; +PRED10TA PO; +TIOT18CA INH
--- NOTE | 2019-06-18 10:59 | NUR ---
THIS IS A 53Y F THAT COMES IN FOR SOB X2 DAYS W/ COUGH, CHILLS BODY ACHES. PT REPORTS NO FLU SHOT THIS YEAR. PT CONNECTED TO ALL MONITORING CALL LIGHT WITHIN REACH. VSS. AWAITING ORDERS AT THIS TIME
[2019-06-18] MEDS ORDERED: ALBUTEROL/IPRATROPIUM 2.5MG/0.5MG, 3 ML ONE (11:23)
[2019-06-18] MEDS ORDERED: SODIUM CHLORIDE FLUSH 10ML SYR IVF ONE (11:30)
[2019-06-18] MEDS ORDERED: ALBUTEROL/IPRATROPIUM 2.5MG/0.5MG, 3 ML NPPB PRN (11:30)
[2019-06-18 11:41] LABS: BASOPHILS # (AUTO) 0.03 x10^3/uL (0-0.1); BASOPHILS % (AUTO) 0 % (0-1); EOSINOPHILS # (AUTO) 0.09 x10^3/uL (0-0.4); EOSINOPHILS % (AUTO) 1 % (1-7); LYMPHOCYTES # (AUTO) 1.02 x10^3/uL (1-3.4); LYMPHOCYTES % (AUTO) 16 % (22-44); MD NO; MEAN CORPUSCULAR HEMOGLOBIN 29.2 pg (27.0-34.8); MEAN CORPUSCULAR VOLUME 91.2 fL (80-100); MEAN PLATELET VOLUME 7.7 fL (7.4-10.4); MONOCYTES # (AUTO) 0.72 x10^3/uL (0.2-0.8); MONOCYTES % (AUTO) 11 % (2-9); NEUTROPHILS # (AUTO) 4.73 x10^3/uL (1.8-6.8); NEUTROPHILS % (AUTO) 72 % (42-75); PLATELET COUNT 232 x10^3/uL (130-400); RED BLOOD COUNT 5.05 x10^6/uL (3.82-5.3); RED CELL DISTRIBUTION WIDTH 16.8 % (9.6-15.2)
[2019-06-18 11:53] LABS: ALANINE AMINOTRANSFERASE 44 U/L (12-78); ALBUMIN 3.4 g/dL (3.4-5.0); ANION GAP 4 mmol/L (5-15); CALCIUM 8.8 mg/dL (8.5-10.1); CHLORIDE 102 mmol/L (98-107)
[2019-06-18 11:58] LABS: ALKALINE PHOSPHATASE 122 U/L (45-117); BILIRUBIN,TOTAL 0.7 mg/dL (0.2-1.0); CREATININE 1.29 mg/dL (0.55-1.02); TOTAL PROTEIN 7.8 g/dL (6.4-8.2)
[2019-06-18 12:13] LABS: RAPID INFLUENZA A Negative (Negative); RAPID INFLUENZA B Negative (Negative)
--- NOTE | 2019-06-18 12:17 | NUR ---
PT RESTING ON [employer] WATCHING TV. CALL LIGHT IN REACH. SHU ASENCIO
[2019-06-18] MEDS ORDERED: SODIUM CHLORIDE FLUSH 10ML SYR IVF PRN (13:30)
--- NOTE | 2019-06-18 13:43 | NUR ---
REPORT TO BELA DURAN. ALL QUESTIONS ANSWERED.
--- NOTE | 2019-06-18 14:23 | NUR ---
[facility] DIMMED CALL LIGHT WITHIN REACH. SHU
[2019-06-18] MEDS ORDERED: HYDROCHLOROTHIAZIDE PO (14:25)
[2019-06-18] MEDS ORDERED: ACETAMINOPHEN 325 MG TABLET PO PRN (14:30)
[2019-06-18] MEDS ORDERED: ONDANSETRON ODT 4 MG PO PRN (14:30)
[2019-06-18] MEDS ORDERED: ONDANSETRON 2MG/ML, 2ML IVPush PRN (14:30)
--- NOTE | 2019-06-18 14:47 | NUR ---
REPORT CALLED TO FLOOR RN ALL QUESTIONS ADDRESSED. PT READY FOR TRANSPORT
[2019-06-18 15:20] VITALS: BP 136/93
[2019-06-18] MEDS ORDERED: BUSP10TA PO (15:30)
[2019-06-18] MEDS: ENOXAPARIN 40 MG/0.4 ML SQ SCH (15:48)
[2019-06-18 16:36] LABS: AMPHETAMINE SCREEN, URINE Positive (Negative); BARBITURATE SCREEN, URINE Negative (Negative); BENZODIAZEPINE SCREEN, URINE Negative (Negative); CANNABINOID SCREEN, URINE Negative (Negative); COCAINE SCREEN, URINE Negative (Negative); METHADONE SCREEN, URINE Negative (Negative); OPIATE SCREEN, URINE Negative (Negative)
[2019-06-18 19:03] VITALS: BP 112/72
[2019-06-18] MEDS: BUDESONIDE 0.5 MG/2 ML INHA NPPB SCH (20:08)
[2019-06-18] MEDS: ALBUTEROL/IPRATROPIUM 2.5MG/0.5MG, 3 ML NPPB SCH (20:08)
[2019-06-18] MEDS: DOXYCYCLINE 100MG CAP PO SCH (20:43)
[2019-06-18] MEDS: BENZONATATE 100 MG CAPSULE PO PRN (22:55)
[2019-06-19 00:19] VITALS: BP 148/92
[2019-06-19] MEDS: GUAIFENESIN/DM 200-20MG, 10ML UDC PO PRN ×3 (01:10→17:32)
[2019-06-19] MEDS: ALBUTEROL/IPRATROPIUM 2.5MG/0.5MG, 3 ML NPPB SCH ×5 (02:24→21:15)
[2019-06-19] MEDS: BENZONATATE 100 MG CAPSULE PO PRN ×2 (05:46→16:05)
[2019-06-19] MEDS: ASPIRIN 81 MG TABLET EC PO SCH (05:46)
[2019-06-19 05:47] LABS: BASOPHILS # (AUTO) 0.02 x10^3/uL (0-0.1); BASOPHILS % (AUTO) 0 % (0-1); EOSINOPHILS % (AUTO) 0 % (1-7); LYMPHOCYTES # (AUTO) 1.17 x10^3/uL (1-3.4); LYMPHOCYTES % (AUTO) 19 % (22-44); MD NO; MEAN CORPUSCULAR HEMOGLOBIN 29.7 pg (27.0-34.8); MEAN CORPUSCULAR HGB CONC 32.5 g/dL (32.4-35.8); MEAN CORPUSCULAR VOLUME 91.3 fL (80-100); MEAN PLATELET VOLUME 7.9 fL (7.4-10.4); MONOCYTES # (AUTO) 0.57 x10^3/uL (0.2-0.8); MONOCYTES % (AUTO) 9 % (2-9); NEUTROPHILS # (AUTO) 4.34 x10^3/uL (1.8-6.8); NEUTROPHILS % (AUTO) 71 % (42-75); PLATELET COUNT 231 x10^3/uL (130-400); RED BLOOD COUNT 4.84 x10^6/uL (3.82-5.3); RED CELL DISTRIBUTION WIDTH 16.8 % (9.6-15.2)
[2019-06-19 05:54] LABS: ANION GAP 7 mmol/L (5-15); CALCIUM 8.9 mg/dL (8.5-10.1); CHLORIDE 103 mmol/L (98-107); CREATININE 1.18 mg/dL (0.55-1.02)
[2019-06-19 07:08] VITALS: BP 116/76
[2019-06-19] MEDS: DOXYCYCLINE 100MG CAP PO SCH ×2 (09:26→21:01)
[2019-06-19] MEDS ORDERED: POTASSIUM CHLORIDE 20 MEQ TAB.ER.PRT PO ONE ×2 (10:00→12:00)
[2019-06-19] MEDS: BUDESONIDE 0.5 MG/2 ML INHA NPPB SCH ×3 (10:52→21:15)
[2019-06-19] MEDS ORDERED: MAGNESIUM SULFATE PMX 2GM/50ML 50 ML IV ONE (12:00)
[2019-06-19] MEDS ORDERED: FUROSEMIDE 40 MG/4 ML IV ONE (12:00)
[2019-06-19] MEDS: methylPREDNISolone SOD SUCC 125 MG/2 ML IVPush SCH ×3 (12:28→23:53)
[2019-06-19 13:48] VITALS: BP 119/73
[2019-06-19] MEDS: ENOXAPARIN 40 MG/0.4 ML SQ SCH (15:20)
[2019-06-19] MEDS: FUROSEMIDE 20 MG/2 ML IV SCH (17:24)
[2019-06-19 18:47] VITALS: BP 137/82
[2019-06-19] MEDS: DIPHENHYDRAMINE 50 MG CAPSULE PO PRN (21:33)
[2019-06-20 00:35] VITALS: BP 147/85
[2019-06-20] MEDS: BENZONATATE 100 MG CAPSULE PO PRN ×2 (01:15→11:18)
[2019-06-20] MEDS: GUAIFENESIN/DM 200-20MG, 10ML UDC PO PRN ×2 (01:15→11:18)
[2019-06-20] MEDS: ALBUTEROL/IPRATROPIUM 2.5MG/0.5MG, 3 ML NPPB SCH ×4 (03:34→20:03)
[2019-06-20 06:02] LABS: BASOPHILS % (AUTO) 0 % (0-1); EOSINOPHILS % (AUTO) 0 % (1-7); LYMPHOCYTES # (AUTO) 0.85 x10^3/uL (1-3.4); LYMPHOCYTES % (AUTO) 8 % (22-44); MD NO; MEAN CORPUSCULAR HEMOGLOBIN 29.5 pg (27.0-34.8); MEAN CORPUSCULAR HGB CONC 31.8 g/dL (32.4-35.8); MEAN PLATELET VOLUME 8.3 fL (7.4-10.4); MONOCYTES # (AUTO) 0.32 x10^3/uL (0.2-0.8); MONOCYTES % (AUTO) 3 % (2-9); NEUTROPHILS # (AUTO) 9.44 x10^3/uL (1.8-6.8); NEUTROPHILS % (AUTO) 89 % (42-75); PLATELET COUNT 253 x10^3/uL (130-400); RED BLOOD COUNT 5.18 x10^6/uL (3.82-5.3)
[2019-06-20] MEDS: ASPIRIN 81 MG TABLET EC PO SCH (06:05)
[2019-06-20 06:06] LABS: ANION GAP 6 mmol/L (5-15); CALCIUM 8.9 mg/dL (8.5-10.1); CHLORIDE 105 mmol/L (98-107); CREATININE 1.09 mg/dL (0.55-1.02)
[2019-06-20] MEDS: methylPREDNISolone SOD SUCC 125 MG/2 ML IVPush SCH ×4 (06:06→23:12)
[2019-06-20 06:54] VITALS: BP 126/77
[2019-06-20] MEDS: BUDESONIDE 0.5 MG/2 ML INHA NPPB SCH ×2 (07:41→20:03)
[2019-06-20] MEDS: DOXYCYCLINE 100MG CAP PO SCH ×2 (08:43→22:07)
[2019-06-20] MEDS: FUROSEMIDE 20 MG/2 ML IV SCH ×2 (08:45→17:03)
[2019-06-20] MEDS ORDERED: MAGNESIUM SULFATE PMX 2GM/50ML 50 ML IV ONE (10:00)
[2019-06-20] MEDS: DIPHENHYDRAMINE 50 MG CAPSULE PO PRN (11:18)
[2019-06-20 12:12] VITALS: BP 144/87
[2019-06-20] MEDS: ENOXAPARIN 40 MG/0.4 ML SQ SCH (16:00)
[2019-06-20 19:08] VITALS: BP 141/91
[2019-06-21] MEDS: ALBUTEROL/IPRATROPIUM 2.5MG/0.5MG, 3 ML NPPB SCH ×2 (02:31→07:15)
[2019-06-21 03:17] VITALS: BP 141/87
[2019-06-21 05:21] LABS: BASOPHILS # (AUTO) 0.02 x10^3/uL (0-0.1); BASOPHILS % (AUTO) 0 % (0-1); EOSINOPHILS # (AUTO) 0.01 x10^3/uL (0-0.4); EOSINOPHILS % (AUTO) 0 % (1-7); LYMPHOCYTES # (AUTO) 0.93 x10^3/uL (1-3.4); LYMPHOCYTES % (AUTO) 6 % (22-44); MD NO; MEAN CORPUSCULAR HEMOGLOBIN 29.8 pg (27.0-34.8); MEAN CORPUSCULAR HGB CONC 31.9 g/dL (32.4-35.8); MEAN CORPUSCULAR VOLUME 93.4 fL (80-100); MEAN PLATELET VOLUME 8.2 fL (7.4-10.4); MONOCYTES % (AUTO) 3 % (2-9); NEUTROPHILS # (AUTO) 14.57 x10^3/uL (1.8-6.8); NEUTROPHILS % (AUTO) 92 % (42-75); PLATELET COUNT 265 x10^3/uL (130-400); RED BLOOD COUNT 5.25 x10^6/uL (3.82-5.3); RED CELL DISTRIBUTION WIDTH 17.3 % (9.6-15.2)
[2019-06-21 05:33] LABS: ANION GAP 6 mmol/L (5-15); CALCIUM 8.8 mg/dL (8.5-10.1); CHLORIDE 104 mmol/L (98-107); CREATININE 1.22 mg/dL (0.55-1.02)
[2019-06-21] MEDS: methylPREDNISolone SOD SUCC 125 MG/2 ML IVPush SCH ×3 (06:14→17:51)
[2019-06-21] MEDS: ASPIRIN 81 MG TABLET EC PO SCH (06:14)
[2019-06-21 06:33] VITALS: BP 125/82
[2019-06-21] MEDS: BUDESONIDE 0.5 MG/2 ML INHA NPPB SCH ×2 (07:15→22:20)
[2019-06-21] MEDS: DOXYCYCLINE 100MG CAP PO SCH ×2 (07:48→20:52)
[2019-06-21] MEDS: FUROSEMIDE 20 MG/2 ML IV SCH (07:48)
[2019-06-21] MEDS ORDERED: OMNIPAQUE 350 MG/ML, 150 ML BOTTLE ONE (09:12)
[2019-06-21] MEDS ORDERED: ALBUTEROL/IPRATROPIUM 2.5MG/0.5MG, 3 ML NPPB PRN (10:00)
[2019-06-21 12:40] VITALS: BP 136/78
[2019-06-21] MEDS: GUAIFENESIN/DM 200-20MG, 10ML UDC PO PRN (13:19)
[2019-06-21] MEDS: BENZONATATE 100 MG CAPSULE PO PRN ×2 (13:19→20:52)
[2019-06-21] MEDS: ENOXAPARIN 40 MG/0.4 ML SQ SCH (16:08)
[2019-06-21 19:13] VITALS: BP 145/86
[2019-06-21] MEDS: DIPHENHYDRAMINE 50 MG CAPSULE PO PRN (20:52)
[2019-06-22] MEDS: methylPREDNISolone SOD SUCC 125 MG/2 ML IVPush SCH ×4 (00:14→18:15)
[2019-06-22 00:17] VITALS: BP 129/78
[2019-06-22] MEDS: ASPIRIN 81 MG TABLET EC PO SCH (05:54)
[2019-06-22 08:36] VITALS: BP 149/82
[2019-06-22] MEDS: BUDESONIDE 0.5 MG/2 ML INHA NPPB SCH (08:45)
[2019-06-22] MEDS: DOXYCYCLINE 100MG CAP PO SCH (08:53)
[2019-06-22] MEDS ORDERED: FUROSEMIDE 20 MG/2 ML IV SCH (09:00)
[2019-06-22 13:21] VITALS: BP 156/83
[2019-06-22] MEDS: ENOXAPARIN 40 MG/0.4 ML SQ SCH (16:20)
[2019-06-22] MEDS ORDERED: PRED5TAB PO (16:49)
[2019-06-22] MEDS ORDERED: FURO-92 PO (16:49)
[2019-06-22] MEDS ORDERED: IPRA3AMP30 NPPB (16:49)
[2019-06-22] MEDS ORDERED: BUDE0.5A NPPB (16:49)
[2019-06-22] MEDS ORDERED: DOXY100T PO (16:49)
== END 2019-06-22 18:59 | disposition home or self-care (01) | DRG 291 ==
LOC: ED 13:05 → EDIP 13:06 → ED 13:26 → 4WST 15:37
PROVIDERS: ADMIT Family Medicine; ATTEND Internal Medicine
DX: I50.33 Acute on chronic diastolic (congestive) heart failure (principal); J96.20 Acute and chronic respiratory failure, unspecified whether with hypoxia or hypercapnia; N17.0 Acute kidney failure with tubular necrosis; J96.21 Acute and chronic respiratory failure with hypoxia; E66.2 Morbid (severe) obesity with alveolar hypoventilation; Z68.42 Body mass index [BMI] 45.0-49.9, adult; F15.10 Other stimulant abuse, uncomplicated; F17.210 Nicotine dependence, cigarettes, uncomplicated; I07.1 Rheumatic tricuspid insufficiency; I27.20 Pulmonary hypertension, unspecified; I35.8 Other nonrheumatic aortic valve disorders; J43.9 Emphysema, unspecified; Z99.81 Dependence on supplemental oxygen
CPT/HCPCS: 36415; 84145; 87400; J7620; J7626; 71045; 71275; 80048; 80053; 80307; 83735; 83880; 85025; 93005; 93306; 94640; G0378; J1650; J1940; Q9967; J2930; J3475; J7512

== ENCOUNTER 2019-10-06 10:56 | Inpatient (IN) | payer MEDICAID ==
[~2019-10-06] VITALS: Ht 152.4 cm; Wt 113.3 kg
[~2019-10-06 10:56] MED LIST changes: +BUDE0.5A NPPB; +BUSP10TA PO; +HYDROCHLOROTHIAZIDE PO; +IPRA3AMP30 NPPB
--- NOTE | 2019-10-06 11:42 | NUR ---
PT TO ROOM 31 PER WHEELCHAIR AND PERSONAL OXYGEN TANK. PT HAS AUDIBLE WHEEZING AND IS VERY SOB. PT HAS DIFFICULTY TALKING DUE TO THE SEVERE SOB. PT WAS SEEN LAST WEEK BY MD, AND WAS TOLD TO COME TO ED. PT REFUSED. PT DID NOT [address] OFFICER THE PREDNISONE THAT WAS ORDERED UNTIL YESTERDAY, BUT HAS NOT STARTED IT. PT HERE FOR COMPLICATIONS OF COPD AND CHF. PT ASSESSED BY MD UPON ARRIVAL, ORDERS PLACED. PT PUT IN GOWN, ATTACHED TO MONITOR AND GIVE CALL LIGHT WITH INSTRUCTIONS. IV AND LAB ORDERED. TECH IN TO START LINE AND OBTAIN LABS.
[2019-10-06] MEDS ORDERED: methylPREDNISolone SOD SUCC 125 MG/2 ML ONE ×2 (11:56→17:14)
[2019-10-06] MEDS ORDERED: ALBUTEROL 0.5%, 20ML ONE (11:57)
[2019-10-06] MEDS ORDERED: methylPREDNISolone SOD SUCC 125 MG/2 ML IV ONE (12:00)
[2019-10-06] MEDS ORDERED: SODIUM CHLORIDE FLUSH 10ML SYR IVF ONE (12:00)
--- NOTE | 2019-10-06 12:01 | NUR ---
IV MEDICATION GIVEN, RESP THERAPY AT BEDSIDE FOR AN HOUR LONG BREATHING TREATMENT.
--- NOTE | 2019-10-06 12:06 | NUR ---
ABD XRAY DELAYED UNTIL 1315 FOR RESP. TX
[2019-10-06 12:23] LABS: BASOPHILS # (AUTO) 0.04 x10^3/uL (0-0.1); BASOPHILS % (AUTO) 0 % (0-1); EOSINOPHILS # (AUTO) 0.25 x10^3/uL (0-0.4); EOSINOPHILS % (AUTO) 3 % (1-7); LYMPHOCYTES # (AUTO) 2.18 x10^3/uL (1-3.4); LYMPHOCYTES % (AUTO) 24 % (22-44); MD NO; MEAN CORPUSCULAR HEMOGLOBIN 30.5 pg (27.0-34.8); MEAN CORPUSCULAR HGB CONC 32.5 g/dL (32.4-35.8); MEAN CORPUSCULAR VOLUME 93.8 fL (80-100); MEAN PLATELET VOLUME 8.1 fL (7.4-10.4); MONOCYTES # (AUTO) 0.83 x10^3/uL (0.2-0.8); MONOCYTES % (AUTO) 9 % (2-9); NEUTROPHILS # (AUTO) 5.68 x10^3/uL (1.8-6.8); NEUTROPHILS % (AUTO) 63 % (42-75); PLATELET COUNT 306 x10^3/uL (130-400); RED BLOOD COUNT 4.79 x10^6/uL (3.82-5.3); RED CELL DISTRIBUTION WIDTH 15.9 % (9.6-15.2)
[2019-10-06 12:33] LABS: ALANINE AMINOTRANSFERASE 29 U/L (12-78); ALBUMIN 3.3 g/dL (3.4-5.0); ANION GAP 9 mmol/L (5-15); CALCIUM 8.4 mg/dL (8.5-10.1); CHLORIDE 108 mmol/L (98-107); CREATININE 1.58 mg/dL (0.55-1.02)
[2019-10-06 12:38] LABS: ALKALINE PHOSPHATASE 113 U/L (45-117); BILIRUBIN,TOTAL 0.4 mg/dL (0.2-1.0); TOTAL PROTEIN 7.6 g/dL (6.4-8.2)
--- NOTE | 2019-10-06 13:01 | NUR ---
PT REMAINS ON NEBULIZER TREATMENT. COUGHING MORE FREQUENTLY, BUT STATES "I'M STARTING TO FEEL BETTER." WILL CONTINUE TO MONITOR.
--- NOTE | 2019-10-06 14:02 | NUR ---
BREATHING TREATMENT COMPLETE. PT TO XRAY FOR ABDOMINAL FILM. PT AUDIBLE WHEEZING HAS DISAPPEARED, AND PT STATES "I FEEL SO MUCH BETTER" WILL CONTINUE TO MONITOR.
--- NOTE | 2019-10-06 14:09 | NUR ---
PT RETURNED FROM XRAY. PLACED ON 4L OXYGEN.
[2019-10-06] MEDS ORDERED: ALBUTEROL 0.5%, 20ML NPPBCONT ONE (14:30)
[2019-10-06] MEDS ORDERED: NICOTINE 14MG/24 HR PATCH.TD24 TD ONE (15:30)
[2019-10-06] MEDS ORDERED: ENOXAPARIN 30 MG/0.3 ML SQ SCH (15:30)
[2019-10-06] MEDS ORDERED: morphine SULFATE 10 MG/ML, 1ML IVPush PRN (15:30)
[2019-10-06] MEDS ORDERED: FUROSEMIDE 40 MG/4 ML IV ONE (15:30)
--- NOTE | 2019-10-06 15:30 | NUR ---
PT STABLE, REQUESTING FOOD. MD AWARE. CONTINUE TO MONITOR PATIENT.
[2019-10-06 15:42] LABS: O2 FLOW 3 L/min
--- NOTE | 2019-10-06 16:13 | NUR ---
REPORT TO FLOOR RN. PT STABLE. PT GIVEN CRACKERS AND WATER. PT VERY ANXIOUS DUE TO THE ALBUTEROL TREATMENT. PT REMAINS TACHYCARDIC.
[2019-10-06 16:45] VITALS: BP 171/98
[2019-10-06] MEDS ORDERED: ENOXAPARIN 40 MG/0.4 ML SQ SCH ×2 (17:00)
[2019-10-06] MEDS ORDERED: LORazepam 2 MG/ML, 1ML ONE (17:18)
[2019-10-06] MEDS: LORazepam 2 MG/ML, 1ML IVPush PRN (17:22)
[2019-10-06] MEDS: ALBUTEROL/IPRATROPIUM 2.5MG/0.5MG, 3 ML NPPB SCH ×2 (17:29→22:00)
[2019-10-06] MEDS ORDERED: methylPREDNISolone SOD SUCC 125 MG/2 ML IVPush ONE (17:30)
[2019-10-06] MEDS ORDERED: ALBUTEROL/IPRATROPIUM 2.5MG/0.5MG, 3 ML NPPB PRN (18:00)
[2019-10-06] MEDS ORDERED: HYDR25TA6 PO (18:21)
[2019-10-06] MEDS ORDERED: LOSA50TA14 PO (18:21)
[2019-10-06] MEDS ORDERED: FURO20TA3 PO (18:21)
[2019-10-06 20:14] VITALS: BP 141/84
[2019-10-06] MEDS: DOCUSATE 100 MG CAPSULE PO SCH (20:17)
[2019-10-06] MEDS: DOXYCYCLINE 100MG TABLET PO SCH (20:17)
[2019-10-06] MEDS: POLYETHYLENE GLYCOL 17 GM PACKET NG SCH (20:17)
[2019-10-06] MEDS: methylPREDNISolone SOD SUCC 40 MG/ML IV SCH (20:24)
[2019-10-06] MEDS: BUDESONIDE 0.5 MG/2 ML INHA NPPB SCH (21:00)
[2019-10-06] MEDS ORDERED: SODIUM CHLORIDE 0.9%, 500ML IVBOLUS ONE (21:30)
[2019-10-06] MEDS ORDERED: LORazepam 2 MG/ML, 1ML IVPush ONE (21:30)
[2019-10-07 02:20] VITALS: BP 149/90
[2019-10-07] MEDS: ALBUTEROL/IPRATROPIUM 2.5MG/0.5MG, 3 ML NPPB SCH ×6 (02:54→22:05)
[2019-10-07] MEDS: methylPREDNISolone SOD SUCC 40 MG/ML IV SCH ×3 (04:19→20:59)
[2019-10-07 05:21] LABS: MEAN CORPUSCULAR HEMOGLOBIN 30.7 pg (27.0-34.8); MEAN CORPUSCULAR HGB CONC 32.7 g/dL (32.4-35.8); MEAN CORPUSCULAR VOLUME 93.8 fL (80-100); MEAN PLATELET VOLUME 8.4 fL (7.4-10.4); PLATELET COUNT 254 x10^3/uL (130-400); RED CELL DISTRIBUTION WIDTH 16.5 % (9.6-15.2)
[2019-10-07 05:23] LABS: ANION GAP 9 mmol/L (5-15); CALCIUM 8.6 mg/dL (8.5-10.1); CHLORIDE 106 mmol/L (98-107); CREATININE 1.36 mg/dL (0.55-1.02)
[2019-10-07] MEDS: ASPIRIN 81 MG TABLET EC PO SCH (05:57)
[2019-10-07 06:09] LABS: MD SCAN
[2019-10-07 06:10] LABS: BASOPHILS # (AUTO) 0.01 x10^3/uL (0-0.1); BASOPHILS % (AUTO) 0 % (0-1); EOSINOPHILS % (AUTO) 0 % (1-7); LYMPHOCYTES # (AUTO) 0.69 x10^3/uL (1-3.4); LYMPHOCYTES % (AUTO) 6 % (22-44); MONOCYTES # (AUTO) 0.24 x10^3/uL (0.2-0.8); MONOCYTES % (AUTO) 2 % (2-9); NEUTROPHILS # (AUTO) 10.97 x10^3/uL (1.8-6.8); NEUTROPHILS % (AUTO) 92 % (42-75)
[2019-10-07] MEDS ORDERED: METOPROLOL 1 MG/ML, 5ML IVPush ONE (06:30)
[2019-10-07] MEDS: BUDESONIDE 0.5 MG/2 ML INHA NPPB SCH ×2 (07:15→19:23)
[2019-10-07] MEDS ORDERED: POTASSIUM CHLORIDE 20 MEQ TAB.ER.PRT PO ONE (08:30)
[2019-10-07 08:50] VITALS: BP 143/97
[2019-10-07] MEDS ORDERED: FUROSEMIDE 40 MG/4 ML IV SCH (09:00)
[2019-10-07] MEDS ORDERED: FLU VACC QS2019-20 36MOS UP/PF 0.5 ML IM-VACC ONE (09:00)
[2019-10-07] MEDS: DOCUSATE 100 MG CAPSULE PO SCH ×2 (09:06→20:59)
[2019-10-07] MEDS: POLYETHYLENE GLYCOL 17 GM PACKET NG SCH ×2 (09:07→20:59)
[2019-10-07 11:01] LABS: AMPHETAMINE SCREEN, URINE Positive (Negative); BARBITURATE SCREEN, URINE Negative (Negative); BENZODIAZEPINE SCREEN, URINE Negative (Negative); CANNABINOID SCREEN, URINE Negative (Negative); COCAINE SCREEN, URINE Negative (Negative); METHADONE SCREEN, URINE Negative (Negative); OPIATE SCREEN, URINE Positive (Negative)
[2019-10-07] MEDS: DOXYCYCLINE 100MG TABLET PO SCH ×2 (11:10→20:59)
[2019-10-07 13:07] VITALS: BP 123/75
[2019-10-07] MEDS: LORazepam 2 MG/ML, 1ML IVPush PRN (13:46)
[2019-10-07] MEDS ORDERED: BISACODYL 10 MG SUPP PR PRN (14:00)
[2019-10-07] MEDS: CARVEDILOL 3.125 MG TABLET PO SCH ×2 (14:21→18:25)
[2019-10-07] MEDS: SENNA/DOCUSATE TABLET PO SCH (14:45)
[2019-10-07 15:02] VITALS: BP 138/82
[2019-10-07] MEDS: DILTIAZEM 5 MG/ML, 5ML IVPush PRN ×2 (15:38→18:26)
[2019-10-07] MEDS ORDERED: HEPARIN 5,000 UNITS/ML, 1ML IV PRN (16:30)
[2019-10-07] MEDS ORDERED: HEPARIN 25,000 UNITS/250ML PMX 250 ML IV PRN (16:30)
[2019-10-07] MEDS ORDERED: HEPARIN 5,000 UNITS/ML, 1ML IV ONE (16:30)
[2019-10-07] MEDS ORDERED: OMNIPAQUE 350 MG/ML, 100ML BOTTLE ONE (18:01)
[2019-10-07 18:24] VITALS: BP 138/68
[2019-10-07 20:24] VITALS: BP 144/85
[2019-10-08 00:59] VITALS: BP 116/71
[2019-10-08] MEDS: ALBUTEROL/IPRATROPIUM 2.5MG/0.5MG, 3 ML NPPB SCH ×6 (02:34→22:16)
[2019-10-08] MEDS: methylPREDNISolone SOD SUCC 40 MG/ML IV SCH ×3 (04:36→21:40)
[2019-10-08 05:22] LABS: ANION GAP 10 mmol/L (5-15); CALCIUM 8.5 mg/dL (8.5-10.1); CHLORIDE 104 mmol/L (98-107); MEAN CORPUSCULAR HEMOGLOBIN 29.9 pg (27.0-34.8); MEAN CORPUSCULAR HGB CONC 31.9 g/dL (32.4-35.8); MEAN CORPUSCULAR VOLUME 93.8 fL (80-100); MEAN PLATELET VOLUME 8.7 fL (7.4-10.4); PLATELET COUNT 267 x10^3/uL (130-400); RED BLOOD COUNT 4.69 x10^6/uL (3.82-5.3); RED CELL DISTRIBUTION WIDTH 16.5 % (9.6-15.2)
[2019-10-08 05:24] LABS: CREATININE 1.28 mg/dL (0.55-1.02)
[2019-10-08 05:39] LABS: MD YES
[2019-10-08 05:42] LABS: ANISOCYTOSIS 1+; BAND#(MANUAL) 0.59 x10^3/uL; BANDS%(MANUAL) 3 % (0-7); LYMPH#(MANUAL) 2.18 x10^3/uL (1-3.4); LYMPHS% (MANUAL) 11 % (22-44); METAMYELOCYTES% (MANUAL) 1 % (0-1); MONOS#(MANUAL) 0.59 x10^3/uL (0.3-2.7); MONOS% (MANUAL) 3 % (2-9); NRBC % (MANUAL) 1 % (0-1); SEG#(MANUAL) 16.24 x10^3/uL (1.8-6.8); SEGS% (MANUAL) 82 % (42-75)
[2019-10-08 05:43] LABS: <PLATELET ESTIMATE> ADEQUATE; <PLT MORPHOLOGY> NORMAL PLT MORPH; POLYCHROMASIA 1+
[2019-10-08] MEDS: ASPIRIN 81 MG TABLET EC PO SCH (06:40)
[2019-10-08] MEDS: CARVEDILOL 3.125 MG TABLET PO SCH (06:40)
[2019-10-08] MEDS: BUDESONIDE 0.5 MG/2 ML INHA NPPB SCH ×2 (06:40→18:15)
[2019-10-08 07:58] VITALS: BP 145/99
[2019-10-08] MEDS: SENNA/DOCUSATE TABLET PO SCH (09:00)
[2019-10-08] MEDS: POLYETHYLENE GLYCOL 17 GM PACKET NG SCH ×2 (09:00→21:40)
[2019-10-08] MEDS: DOXYCYCLINE 100MG TABLET PO SCH ×2 (09:54→21:40)
[2019-10-08] MEDS: DOCUSATE 100 MG CAPSULE PO SCH ×2 (09:55→21:40)
[2019-10-08] MEDS: FUROSEMIDE 40 MG/4 ML IV SCH ×2 (09:56→21:40)
[2019-10-08 13:19] VITALS: BP 148/89
[2019-10-08 18:06] VITALS: BP 135/80
[2019-10-08] MEDS: CARVEDILOL 6.25 MG TABLET PO SCH (18:10)
[2019-10-08 19:04] VITALS: BP 135/80
[2019-10-09 03:11] VITALS: BP 119/80
[2019-10-09] MEDS: ALBUTEROL/IPRATROPIUM 2.5MG/0.5MG, 3 ML NPPB SCH ×5 (03:59→20:25)
[2019-10-09 05:10] LABS: BASOPHILS # (AUTO) 0.01 x10^3/uL (0-0.1); BASOPHILS % (AUTO) 0 % (0-1); EOSINOPHILS % (AUTO) 1 % (1-7); LYMPHOCYTES # (AUTO) 0.88 x10^3/uL (1-3.4); LYMPHOCYTES % (AUTO) 5 % (22-44); MD NO; MEAN CORPUSCULAR HEMOGLOBIN 30.2 pg (27.0-34.8); MEAN CORPUSCULAR HGB CONC 32.4 g/dL (32.4-35.8); MEAN CORPUSCULAR VOLUME 93.3 fL (80-100); MEAN PLATELET VOLUME 8.5 fL (7.4-10.4); MONOCYTES # (AUTO) 0.62 x10^3/uL (0.2-0.8); MONOCYTES % (AUTO) 4 % (2-9); NEUTROPHILS % (AUTO) 90 % (42-75); PLATELET COUNT 278 x10^3/uL (130-400); RED CELL DISTRIBUTION WIDTH 16.3 % (9.6-15.2)
[2019-10-09 05:14] LABS: ANION GAP 8 mmol/L (5-15); CALCIUM 8.5 mg/dL (8.5-10.1); CHLORIDE 102 mmol/L (98-107); CREATININE 1.43 mg/dL (0.55-1.02)
[2019-10-09] MEDS: CARVEDILOL 6.25 MG TABLET PO SCH (05:45)
[2019-10-09] MEDS: methylPREDNISolone SOD SUCC 40 MG/ML IV SCH ×3 (05:45→21:20)
[2019-10-09] MEDS: ASPIRIN 81 MG TABLET EC PO SCH (05:45)
[2019-10-09] MEDS: BUDESONIDE 0.5 MG/2 ML INHA NPPB SCH ×2 (06:40→20:25)
[2019-10-09 07:51] VITALS: BP 127/87
[2019-10-09] MEDS: DOXYCYCLINE 100MG TABLET PO SCH ×2 (08:55→21:20)
[2019-10-09] MEDS: DOCUSATE 100 MG CAPSULE PO SCH ×2 (08:55→21:00)
[2019-10-09] MEDS: FUROSEMIDE 40 MG/4 ML IV SCH ×2 (08:56→21:19)
[2019-10-09] MEDS: POLYETHYLENE GLYCOL 17 GM PACKET NG SCH ×2 (08:56→21:00)
[2019-10-09] MEDS: SENNA/DOCUSATE TABLET PO SCH (08:56)
[2019-10-09] MEDS ORDERED: DILTIAZEM 5 MG/ML, 5ML IVPush ONE (12:00)
[2019-10-09] MEDS: ACETAMINOPHEN 325 MG TABLET PO PRN (12:16)
[2019-10-09 12:59] VITALS: BP 131/96
[2019-10-09] MEDS: CARVEDILOL 12.5 MG TABLET PO SCH (18:12)
[2019-10-09 21:18] VITALS: BP 120/76
[2019-10-10] MEDS ORDERED: TEMAZEPAM 15 MG CAPSULE PO PRN
[2019-10-10 00:09] VITALS: BP 158/89
[2019-10-10 05:07] VITALS: BP 127/83
[2019-10-10] MEDS: methylPREDNISolone SOD SUCC 40 MG/ML IV SCH ×2 (05:09→14:01)
[2019-10-10] MEDS: ASPIRIN 81 MG TABLET EC PO SCH (05:09)
[2019-10-10] MEDS: CARVEDILOL 12.5 MG TABLET PO SCH ×2 (05:09→17:33)
[2019-10-10 05:31] LABS: BASOPHILS # (AUTO) 0.01 x10^3/uL (0-0.1); BASOPHILS % (AUTO) 0 % (0-1); EOSINOPHILS % (AUTO) 0 % (1-7); LYMPHOCYTES # (AUTO) 0.87 x10^3/uL (1-3.4); LYMPHOCYTES % (AUTO) 6 % (22-44); MD NO; MEAN CORPUSCULAR HEMOGLOBIN 30.3 pg (27.0-34.8); MEAN CORPUSCULAR HGB CONC 32.5 g/dL (32.4-35.8); MEAN CORPUSCULAR VOLUME 93.3 fL (80-100); MEAN PLATELET VOLUME 8.4 fL (7.4-10.4); MONOCYTES # (AUTO) 0.67 x10^3/uL (0.2-0.8); MONOCYTES % (AUTO) 5 % (2-9); NEUTROPHILS # (AUTO) 13.27 x10^3/uL (1.8-6.8); NEUTROPHILS % (AUTO) 90 % (42-75); PLATELET COUNT 271 x10^3/uL (130-400); RED BLOOD COUNT 4.95 x10^6/uL (3.82-5.3); RED CELL DISTRIBUTION WIDTH 16.7 % (9.6-15.2)
[2019-10-10 05:42] LABS: ANION GAP 9 mmol/L (5-15); CALCIUM 8.5 mg/dL (8.5-10.1); CHLORIDE 102 mmol/L (98-107); CREATININE 1.39 mg/dL (0.55-1.02)
[2019-10-10] MEDS: BUDESONIDE 0.5 MG/2 ML INHA NPPB SCH ×2 (06:25→19:00)
[2019-10-10] MEDS: ALBUTEROL/IPRATROPIUM 2.5MG/0.5MG, 3 ML NPPB SCH ×4 (06:25→19:00)
[2019-10-10 06:47] VITALS: BP 135/85
[2019-10-10] MEDS: DOCUSATE 100 MG CAPSULE PO SCH ×2 (10:06→21:00)
[2019-10-10] MEDS: FUROSEMIDE 40 MG/4 ML IV SCH (10:06)
[2019-10-10] MEDS: DOXYCYCLINE 100MG TABLET PO SCH ×2 (10:07→21:03)
[2019-10-10] MEDS: POLYETHYLENE GLYCOL 17 GM PACKET NG SCH ×2 (10:07→21:00)
[2019-10-10] MEDS: SENNA/DOCUSATE TABLET PO SCH (10:07)
[2019-10-10 13:18] VITALS: BP 126/68
[2019-10-10] MEDS ORDERED: FUROSEMIDE 40 MG TABLET PO SCH (17:00)
[2019-10-10] MEDS: HEPARIN 5,000 UNITS/ML, 1ML SQ SCH (17:33)
[2019-10-10 19:57] VITALS: BP 105/69
[2019-10-11] MEDS: HEPARIN 5,000 UNITS/ML, 1ML SQ SCH ×3 (01:21→17:42)
[2019-10-11 01:28] VITALS: BP 132/83
[2019-10-11 05:24] LABS: BASOPHILS # (AUTO) 0.04 x10^3/uL (0-0.1); BASOPHILS % (AUTO) 0 % (0-1); EOSINOPHILS % (AUTO) 0 % (1-7); LYMPHOCYTES # (AUTO) 1.69 x10^3/uL (1-3.4); LYMPHOCYTES % (AUTO) 11 % (22-44); MD NO; MEAN CORPUSCULAR HEMOGLOBIN 29.7 pg (27.0-34.8); MEAN CORPUSCULAR HGB CONC 31.8 g/dL (32.4-35.8); MEAN CORPUSCULAR VOLUME 93.4 fL (80-100); MEAN PLATELET VOLUME 8.3 fL (7.4-10.4); MONOCYTES # (AUTO) 1.36 x10^3/uL (0.2-0.8); MONOCYTES % (AUTO) 9 % (2-9); NEUTROPHILS # (AUTO) 12.55 x10^3/uL (1.8-6.8); NEUTROPHILS % (AUTO) 80 % (42-75); PLATELET COUNT 251 x10^3/uL (130-400); RED BLOOD COUNT 4.87 x10^6/uL (3.82-5.3); RED CELL DISTRIBUTION WIDTH 15.8 % (9.6-15.2)
[2019-10-11 05:38] VITALS: BP 138/94
[2019-10-11 05:39] LABS: ANION GAP 7 mmol/L (5-15); CALCIUM 8.2 mg/dL (8.5-10.1); CHLORIDE 101 mmol/L (98-107); CREATININE 1.32 mg/dL (0.55-1.02)
[2019-10-11] MEDS: ASPIRIN 81 MG TABLET EC PO SCH (05:40)
[2019-10-11] MEDS: CARVEDILOL 12.5 MG TABLET PO SCH ×2 (05:40→17:42)
[2019-10-11] MEDS: ALBUTEROL/IPRATROPIUM 2.5MG/0.5MG, 3 ML NPPB SCH ×4 (06:00→21:00)
[2019-10-11 06:37] VITALS: BP 127/74
[2019-10-11] MEDS: BUDESONIDE 0.5 MG/2 ML INHA NPPB SCH ×2 (07:24→21:00)
[2019-10-11] MEDS: DOCUSATE 100 MG CAPSULE PO SCH ×2 (09:00→20:26)
[2019-10-11] MEDS: SENNA/DOCUSATE TABLET PO SCH (09:00)
[2019-10-11] MEDS: POLYETHYLENE GLYCOL 17 GM PACKET NG SCH ×2 (09:00→20:26)
[2019-10-11] MEDS: FUROSEMIDE 40 MG/4 ML IV SCH (10:25)
[2019-10-11] MEDS: DOXYCYCLINE 100MG TABLET PO SCH (10:25)
[2019-10-11 12:39] VITALS: BP 114/56
[2019-10-11 18:47] VITALS: BP 106/66
[2019-10-11] MEDS: methylPREDNISolone SOD SUCC 125 MG/2 ML IV SCH (20:27)
[2019-10-12] MEDS: HEPARIN 5,000 UNITS/ML, 1ML SQ SCH ×3 (00:50→17:18)
[2019-10-12 00:55] VITALS: BP 117/82
[2019-10-12 04:48] LABS: BASOPHILS # (AUTO) 0.02 x10^3/uL (0-0.1); BASOPHILS % (AUTO) 0 % (0-1); EOSINOPHILS # (AUTO) 0.01 x10^3/uL (0-0.4); EOSINOPHILS % (AUTO) 0 % (1-7); LYMPHOCYTES # (AUTO) 0.93 x10^3/uL (1-3.4); LYMPHOCYTES % (AUTO) 8 % (22-44); MD NO; MEAN CORPUSCULAR HEMOGLOBIN 29.6 pg (27.0-34.8); MEAN CORPUSCULAR HGB CONC 32.1 g/dL (32.4-35.8); MEAN CORPUSCULAR VOLUME 92.4 fL (80-100); MEAN PLATELET VOLUME 8.3 fL (7.4-10.4); MONOCYTES # (AUTO) 0.19 x10^3/uL (0.2-0.8); MONOCYTES % (AUTO) 2 % (2-9); NEUTROPHILS # (AUTO) 11.35 x10^3/uL (1.8-6.8); NEUTROPHILS % (AUTO) 91 % (42-75); PLATELET COUNT 256 x10^3/uL (130-400); RED BLOOD COUNT 5.26 x10^6/uL (3.82-5.3); RED CELL DISTRIBUTION WIDTH 15.9 % (9.6-15.2)
[2019-10-12 05:05] LABS: CHLORIDE 101 mmol/L (98-107)
[2019-10-12 05:14] LABS: ANION GAP 8 mmol/L (5-15); CALCIUM 8.5 mg/dL (8.5-10.1); CREATININE 1.29 mg/dL (0.55-1.02)
[2019-10-12] MEDS: ASPIRIN 81 MG TABLET EC PO SCH (05:19)
[2019-10-12] MEDS: CARVEDILOL 12.5 MG TABLET PO SCH ×2 (05:20→18:39)
[2019-10-12 07:30] VITALS: BP 113/79
[2019-10-12] MEDS: ALBUTEROL/IPRATROPIUM 2.5MG/0.5MG, 3 ML NPPB SCH ×4 (07:59→20:52)
[2019-10-12] MEDS: SENNA/DOCUSATE TABLET PO SCH (09:00)
[2019-10-12] MEDS: DOCUSATE 100 MG CAPSULE PO SCH ×2 (09:00→20:51)
[2019-10-12] MEDS: POLYETHYLENE GLYCOL 17 GM PACKET NG SCH ×2 (09:00→20:51)
[2019-10-12] MEDS: BUDESONIDE 0.5 MG/2 ML INHA NPPB SCH ×2 (09:00→20:52)
[2019-10-12] MEDS: methylPREDNISolone SOD SUCC 125 MG/2 ML IV SCH ×2 (09:15→20:51)
[2019-10-12] MEDS: FUROSEMIDE 40 MG/4 ML IV SCH (09:16)
[2019-10-12 14:05] VITALS: BP 118/72
[2019-10-12 18:56] VITALS: BP 139/87
[2019-10-13 00:51] VITALS: BP 126/80
[2019-10-13] MEDS: HEPARIN 5,000 UNITS/ML, 1ML SQ SCH ×2 (01:30→10:35)
[2019-10-13] MEDS: ALBUTEROL/IPRATROPIUM 2.5MG/0.5MG, 3 ML NPPB SCH ×2 (06:00→10:22)
[2019-10-13] MEDS: CARVEDILOL 12.5 MG TABLET PO SCH (06:02)
[2019-10-13] MEDS: ASPIRIN 81 MG TABLET EC PO SCH (06:02)
[2019-10-13 06:06] LABS: ANION GAP 9 mmol/L (5-15); CALCIUM 8.5 mg/dL (8.5-10.1); CHLORIDE 100 mmol/L (98-107); CREATININE 1.34 mg/dL (0.55-1.02)
[2019-10-13 06:14] LABS: BASOPHILS # (AUTO) 0.02 x10^3/uL (0-0.1); BASOPHILS % (AUTO) 0 % (0-1); EOSINOPHILS % (AUTO) 0 % (1-7); LYMPHOCYTES # (AUTO) 0.84 x10^3/uL (1-3.4); LYMPHOCYTES % (AUTO) 5 % (22-44); MD NO; MEAN CORPUSCULAR HEMOGLOBIN 29.7 pg (27.0-34.8); MEAN CORPUSCULAR VOLUME 92.8 fL (80-100); MEAN PLATELET VOLUME 8.4 fL (7.4-10.4); MONOCYTES # (AUTO) 0.34 x10^3/uL (0.2-0.8); MONOCYTES % (AUTO) 2 % (2-9); NEUTROPHILS # (AUTO) 16.08 x10^3/uL (1.8-6.8); NEUTROPHILS % (AUTO) 93 % (42-75); PLATELET COUNT 243 x10^3/uL (130-400); RED BLOOD COUNT 5.32 x10^6/uL (3.82-5.3); RED CELL DISTRIBUTION WIDTH 15.9 % (9.6-15.2)
[2019-10-13 08:02] VITALS: BP 130/75
[2019-10-13] MEDS: BUDESONIDE 0.5 MG/2 ML INHA NPPB SCH (09:00)
[2019-10-13] MEDS: SENNA/DOCUSATE TABLET PO SCH (09:00)
[2019-10-13] MEDS: DOCUSATE 100 MG CAPSULE PO SCH (09:00)
[2019-10-13] MEDS: FUROSEMIDE 40 MG/4 ML IV SCH (09:52)
[2019-10-13] MEDS: methylPREDNISolone SOD SUCC 125 MG/2 ML IV SCH (10:07)
[2019-10-13] MEDS: POLYETHYLENE GLYCOL 17 GM PACKET NG SCH (10:13)
[2019-10-13] MEDS ORDERED: CARV12.52 PO (12:56)
[2019-10-13] MEDS ORDERED: PRED10TA PO (12:56)
[2019-10-13] MEDS: ACETAMINOPHEN 325 MG TABLET PO PRN (13:28)
== END 2019-10-13 15:31 | disposition home or self-care (01) | DRG 682 ==
LOC: ED 15:14 → EDIP 15:15 → 5SO 16:26 → 4NW 10-11 18:12 → DCLOUNGE 10-13 15:26
PROVIDERS: ADMIT Internal Medicine Infectious Disease; ATTEND Internal Medicine
DX: N17.9 Acute kidney failure, unspecified (principal); J96.21 Acute and chronic respiratory failure with hypoxia; I50.33 Acute on chronic diastolic (congestive) heart failure; I13.0 Hypertensive heart and chronic kidney disease with heart failure and stage 1 through stage 4 chronic kidney disease, or unspecified chronic kidney disease; E46 Unspecified protein-calorie malnutrition; J44.1 Chronic obstructive pulmonary disease with (acute) exacerbation; E66.2 Morbid (severe) obesity with alveolar hypoventilation; Z68.42 Body mass index [BMI] 45.0-49.9, adult; E87.6 Hypokalemia; I07.1 Rheumatic tricuspid insufficiency; I27.20 Pulmonary hypertension, unspecified; F41.9 Anxiety disorder, unspecified; N18.3 Chronic kidney disease, stage 3 (moderate); Z23 Encounter for immunization; Z82.5 Family history of asthma and other chronic lower respiratory diseases; Z83.3 Family history of diabetes mellitus; Z99.81 Dependence on supplemental oxygen; Z90.49 Acquired absence of other specified parts of digestive tract; Z79.899 Other long term (current) drug therapy; Z71.6 Tobacco abuse counseling
CPT/HCPCS: 36415; 36600; 74018; 99285; J7626; 71045; 71275; 80048; 80053; 80307; 82803; 83735; 83880; 84100; 84443; 85025; 85520; 90686; 93005; 93306; 94640; 94644; G0378; J1644; J1650; J1940; Q9967; J2060; J2270; J2920; J2930; J7040

== ENCOUNTER 2020-03-12 18:00 | Inpatient (IN) | payer MEDICAID ==
[~2020-03-12] VITALS: Ht 152.4 cm; Wt 116.4 kg
[~2020-03-12 18:00] MED LIST changes: +AZIT500T PO; +CARV12.52 PO; +FURO20TA3 PO; +GUAI200T37 PO; +HYDR25TA6 PO; +LOSA50TA14 PO; +PRED20TA PO
[2020-03-12 18:40] LABS: BASOPHILS # (AUTO) 0.02 x10^3/uL (0-0.1); BASOPHILS % (AUTO) 0 % (0-1); EOSINOPHILS # (AUTO) 0.11 x10^3/uL (0-0.4); EOSINOPHILS % (AUTO) 1 % (1-7); LYMPHOCYTES # (AUTO) 1.46 x10^3/uL (1-3.4); LYMPHOCYTES % (AUTO) 17 % (22-44); MD NO; MEAN CORPUSCULAR HEMOGLOBIN 31.7 pg (27.0-34.8); MEAN CORPUSCULAR HGB CONC 32.4 g/dL (32.4-35.8); MEAN CORPUSCULAR VOLUME 97.6 fL (80-100); MONOCYTES # (AUTO) 0.82 x10^3/uL (0.2-0.8); MONOCYTES % (AUTO) 9 % (2-9); NEUTROPHILS # (AUTO) 6.32 x10^3/uL (1.8-6.8); NEUTROPHILS % (AUTO) 72 % (42-75); PLATELET COUNT 276 x10^3/uL (130-400); RED CELL DISTRIBUTION WIDTH 20.4 % (9.6-15.2)
--- NOTE | 2020-03-12 18:48 | NUR ---
REPORT GIVEN TO MAHNAZ
[2020-03-12 18:49] LABS: ALANINE AMINOTRANSFERASE 23 U/L (12-78); ALBUMIN 3.1 g/dL (3.4-5.0); ANION GAP 10 mmol/L (5-15); CALCIUM 8.1 mg/dL (8.5-10.1); CHLORIDE 104 mmol/L (98-107)
--- NOTE | 2020-03-12 18:51 | NUR ---
REPORT FROM FRANKIE CRAMER TO ASSUME CARE AT THIS TIME
[2020-03-12 18:53] LABS: ALKALINE PHOSPHATASE 92 U/L (45-117); TOTAL PROTEIN 6.6 g/dL (6.4-8.2); TROPONIN I 0.045 ng/mL (0.000-0.045)
[2020-03-12] MEDS ORDERED: CEFTRIAXONE PMX 1GM/50ML 50 ML ONE (19:52)
[2020-03-12] MEDS ORDERED: AZITHROMYCIN 500 MG in SODIUM CHLORIDE 0.9% 250 ML IV ONE (20:00)
[2020-03-12] MEDS ORDERED: CEFTRIAXONE PMX 1GM/50ML 50 ML IV ONE (20:00)
[2020-03-12] MEDS ORDERED: SODIUM CHLORIDE 0.9% 1,000ML IVBOLUS ONE (20:00)
[2020-03-12] MEDS ORDERED: HEPARIN 5,000 UNITS/ML, 1ML ONE (20:11)
[2020-03-12] MEDS ORDERED: ALBUTEROL/IPRATROPIUM 2.5MG/0.5MG, 3 ML ONE (20:12)
[2020-03-12] MEDS ORDERED: BUDESONIDE 0.5 MG/2 ML INHA ONE (20:20)
[2020-03-12] MEDS: BUSPIRONE 10 MG TABLET PO SCH (20:28)
[2020-03-12] MEDS: HEPARIN 5,000 UNITS/ML, 1ML SQ SCH (20:28)
[2020-03-12] MEDS ORDERED: ACETAMINOPHEN 325 MG TABLET PO PRN (20:30)
[2020-03-12] MEDS ORDERED: GUAIFENESIN/DM 200-20MG, 10ML UDC PO PRN (20:30)
--- NOTE | 2020-03-12 20:45 | NUR ---
COVID SWAB COLLECTED AND WALKED TO LAB
[2020-03-12] MEDS ORDERED: ALBUTEROL/IPRATROPIUM 2.5MG/0.5MG, 3 ML NPPB SCH (21:00)
[2020-03-12] MEDS ORDERED: BUDESONIDE 0.5 MG/2 ML INHA NPPB SCH (21:00)
--- NOTE | 2020-03-12 21:01 | NUR ---
PT MEDICATED PER EMAR, PROVIDED WITH SANDWHICH AND JUICE PER REQUEST, PT RESTING COMFORTABLY IN BED, VSS, NADN AT THIS TIME
--- NOTE | 2020-03-12 21:24 | NUR ---
PT PROVIDED WITH BEDSIDE COMMODE
[2020-03-12 22:29] VITALS: BP 112/72
[2020-03-12] MEDS: DIPHENHYDRAMINE 25 MG CAPSULE PO PRN (22:57)
[2020-03-13 01:08] VITALS: BP 100/60
[2020-03-13] MEDS: CARVEDILOL 12.5 MG TABLET PO SCH ×2 (05:11→18:16)
[2020-03-13] MEDS: ASPIRIN 81 MG TABLET EC PO SCH (05:11)
[2020-03-13] MEDS: HEPARIN 5,000 UNITS/ML, 1ML SQ SCH ×3 (05:11→20:53)
[2020-03-13 06:20] LABS: BASOPHILS # (AUTO) 0.02 x10^3/uL (0-0.1); BASOPHILS % (AUTO) 0 % (0-1); EOSINOPHILS # (AUTO) 0.12 x10^3/uL (0-0.4); EOSINOPHILS % (AUTO) 2 % (1-7); LYMPHOCYTES # (AUTO) 1.39 x10^3/uL (1-3.4); LYMPHOCYTES % (AUTO) 22 % (22-44); MD NO; MEAN CORPUSCULAR HEMOGLOBIN 31.6 pg (27.0-34.8); MEAN CORPUSCULAR HGB CONC 32.4 g/dL (32.4-35.8); MEAN CORPUSCULAR VOLUME 97.6 fL (80-100); MEAN PLATELET VOLUME 8.3 fL (7.4-10.4); MONOCYTES # (AUTO) 0.72 x10^3/uL (0.2-0.8); MONOCYTES % (AUTO) 12 % (2-9); NEUTROPHILS # (AUTO) 3.97 x10^3/uL (1.8-6.8); NEUTROPHILS % (AUTO) 64 % (42-75); PLATELET COUNT 229 x10^3/uL (130-400); RED BLOOD COUNT 3.95 x10^6/uL (3.82-5.3); RED CELL DISTRIBUTION WIDTH 20.5 % (9.6-15.2)
[2020-03-13 06:27] LABS: CHLORIDE 106 mmol/L (98-107)
[2020-03-13 06:32] LABS: ANION GAP 9 mmol/L (5-15); CREATININE 2.19 mg/dL (0.55-1.02)
[2020-03-13 06:36] VITALS: BP 100/67
[2020-03-13] MEDS ORDERED: POTASSIUM CHLORIDE 20 MEQ TAB.ER.PRT PO SCH ×2 (09:00→11:00)
[2020-03-13] MEDS ORDERED: FUROSEMIDE 40 MG TABLET PO SCH (09:00)
[2020-03-13] MEDS ORDERED: AZITHROMYCIN 250 MG TABLET PO SCH (09:00)
[2020-03-13] MEDS: SENNA/DOCUSATE TABLET PO SCH (09:57)
[2020-03-13] MEDS: BUSPIRONE 10 MG TABLET PO SCH ×2 (09:57→20:54)
[2020-03-13] MEDS: CEFTRIAXONE PMX 1GM/50ML 50 ML IV SCH (10:01)
[2020-03-13] MEDS ORDERED: PHARMACY MAY ADJ FOR RENAL FX MC PRN (11:00)
[2020-03-13 11:35] VITALS: BP 107/68
[2020-03-13] MEDS: FLUTICASONE/VILANTEROL 100-25MCG/INH INH SCH (11:51)
[2020-03-13 12:15] VITALS: BP 98/66
[2020-03-13] MEDS: methylPREDNISolone SOD SUCC 125 MG/2 ML IVPush SCH ×2 (15:19→20:54)
[2020-03-13 18:14] VITALS: BP 102/64
[2020-03-13 19:15] VITALS: BP 134/90
[2020-03-13] MEDS: DIPHENHYDRAMINE 25 MG CAPSULE PO PRN (20:54)
[2020-03-13] MEDS: SODIUM CHLORIDE 0.9% 1,000 ML IV SCH (20:54)
[2020-03-14 00:05] VITALS: BP 139/82
[2020-03-14] MEDS: methylPREDNISolone SOD SUCC 125 MG/2 ML IVPush SCH ×4 (02:31→20:13)
[2020-03-14] MEDS: HEPARIN 5,000 UNITS/ML, 1ML SQ SCH ×3 (05:15→20:14)
[2020-03-14] MEDS: SENNA/DOCUSATE TABLET PO SCH (05:16)
[2020-03-14] MEDS: ASPIRIN 81 MG TABLET EC PO SCH (05:16)
[2020-03-14] MEDS: CARVEDILOL 12.5 MG TABLET PO SCH ×2 (05:16→17:33)
[2020-03-14 05:45] LABS: BASOPHILS # (AUTO) 0.02 x10^3/uL (0-0.1); BASOPHILS % (AUTO) 0 % (0-1); EOSINOPHILS % (AUTO) 0 % (1-7); LYMPHOCYTES # (AUTO) 0.51 x10^3/uL (1-3.4); LYMPHOCYTES % (AUTO) 7 % (22-44); MD NO; MEAN CORPUSCULAR HEMOGLOBIN 32.1 pg (27.0-34.8); MEAN CORPUSCULAR HGB CONC 32.8 g/dL (32.4-35.8); MEAN CORPUSCULAR VOLUME 97.9 fL (80-100); MEAN PLATELET VOLUME 8.2 fL (7.4-10.4); MONOCYTES # (AUTO) 0.11 x10^3/uL (0.2-0.8); MONOCYTES % (AUTO) 2 % (2-9); NEUTROPHILS # (AUTO) 6.34 x10^3/uL (1.8-6.8); NEUTROPHILS % (AUTO) 91 % (42-75); PLATELET COUNT 207 x10^3/uL (130-400); RED BLOOD COUNT 3.76 x10^6/uL (3.82-5.3); RED CELL DISTRIBUTION WIDTH 20.3 % (9.6-15.2)
[2020-03-14 05:55] LABS: ALBUMIN 2.9 g/dL (3.4-5.0); ANION GAP 6 mmol/L (5-15); CALCIUM 8.5 mg/dL (8.5-10.1); CHLORIDE 107 mmol/L (98-107)
[2020-03-14 05:57] LABS: CREATININE 1.73 mg/dL (0.55-1.02)
[2020-03-14 07:57] VITALS: BP 100/65
[2020-03-14] MEDS: CEFTRIAXONE PMX 1GM/50ML 50 ML IV SCH (08:11)
[2020-03-14] MEDS: FLUTICASONE/VILANTEROL 100-25MCG/INH INH SCH (08:12)
[2020-03-14] MEDS: BUSPIRONE 10 MG TABLET PO SCH ×2 (08:12→20:14)
[2020-03-14] MEDS: SODIUM CHLORIDE 0.9% 1,000 ML IV SCH ×2 (08:12→21:22)
[2020-03-14] MEDS: AZITHROMYCIN 500 MG TABLET PO SCH (08:12)
[2020-03-14 14:04] VITALS: BP 109/71
[2020-03-14 18:24] VITALS: BP 113/72
[2020-03-15 01:36] VITALS: BP 122/79
[2020-03-15] MEDS: methylPREDNISolone SOD SUCC 125 MG/2 ML IVPush SCH ×3 (02:06→16:17)
[2020-03-15] MEDS: HEPARIN 5,000 UNITS/ML, 1ML SQ SCH ×3 (04:17→21:10)
[2020-03-15 05:55] VITALS: BP 130/77
[2020-03-15] MEDS: ASPIRIN 81 MG TABLET EC PO SCH (05:56)
[2020-03-15] MEDS: CARVEDILOL 12.5 MG TABLET PO SCH ×2 (05:56→18:46)
[2020-03-15 06:52] VITALS: BP 145/88
[2020-03-15 07:47] LABS: ANION GAP 6 mmol/L (5-15); CALCIUM 8.3 mg/dL (8.5-10.1); CHLORIDE 110 mmol/L (98-107); CREATININE 1.52 mg/dL (0.55-1.02)
[2020-03-15] MEDS: AZITHROMYCIN 500 MG TABLET PO SCH (08:07)
[2020-03-15] MEDS: BUSPIRONE 10 MG TABLET PO SCH ×2 (08:07→21:10)
[2020-03-15] MEDS: CEFTRIAXONE PMX 1GM/50ML 50 ML IV SCH (08:07)
[2020-03-15 08:08] LABS: MICROSCOPIC NOT IND
[2020-03-15] MEDS: SENNA/DOCUSATE TABLET PO SCH (08:08)
[2020-03-15] MEDS: FLUTICASONE/VILANTEROL 100-25MCG/INH INH SCH (08:12)
[2020-03-15] MEDS: SODIUM CHLORIDE 0.9% 1,000 ML IV SCH (13:25)
[2020-03-15 13:56] VITALS: BP 121/80
[2020-03-15] MEDS: GUAIFENESIN 200 MG TABLET PO SCH ×2 (16:20→21:09)
[2020-03-15] MEDS: AMOXICILLIN/CLAV 875-125MG TABLET PO SCH (21:10)
[2020-03-15] MEDS: DIPHENHYDRAMINE 25 MG CAPSULE PO PRN (21:11)
[2020-03-15] MEDS: methylPREDNISolone SOD SUCC 40 MG/ML IVPush SCH (23:04)
[2020-03-16 01:13] VITALS: BP 145/83
[2020-03-16] MEDS: SODIUM CHLORIDE 0.9% 1,000 ML IV SCH (03:11)
[2020-03-16] MEDS: HEPARIN 5,000 UNITS/ML, 1ML SQ SCH ×3 (05:23→21:24)
[2020-03-16] MEDS: methylPREDNISolone SOD SUCC 40 MG/ML IVPush SCH (05:23)
[2020-03-16 06:24] VITALS: BP 155/89
[2020-03-16] MEDS: ASPIRIN 81 MG TABLET EC PO SCH (06:27)
[2020-03-16] MEDS: GUAIFENESIN 200 MG TABLET PO SCH ×4 (06:27→21:24)
[2020-03-16] MEDS: CARVEDILOL 12.5 MG TABLET PO SCH ×2 (06:27→19:29)
[2020-03-16 07:21] VITALS: BP 144/92
[2020-03-16] MEDS: AZITHROMYCIN 500 MG TABLET PO SCH (09:35)
[2020-03-16] MEDS: AMOXICILLIN/CLAV 875-125MG TABLET PO SCH ×2 (09:35→21:24)
[2020-03-16] MEDS: BUSPIRONE 10 MG TABLET PO SCH ×2 (09:35→21:24)
[2020-03-16] MEDS: SENNA/DOCUSATE TABLET PO SCH (09:35)
[2020-03-16] MEDS: FLUTICASONE/VILANTEROL 100-25MCG/INH INH SCH (09:39)
[2020-03-16 10:48] LABS: CHLORIDE 110 mmol/L (98-107)
[2020-03-16 10:58] LABS: ALANINE AMINOTRANSFERASE 25 U/L (12-78); ALBUMIN 3.2 g/dL (3.4-5.0); ALKALINE PHOSPHATASE 82 U/L (45-117); ANION GAP 7 mmol/L (5-15); BILIRUBIN,TOTAL 0.4 mg/dL (0.2-1.0); CALCIUM 8.7 mg/dL (8.5-10.1); CREATININE 1.53 mg/dL (0.55-1.02); TOTAL PROTEIN 6.7 g/dL (6.4-8.2)
[2020-03-16] MEDS: TIOTROPIUM BROMIDE 18 MCG/INH INH SCH (11:56)
[2020-03-16] MEDS: methylPREDNISolone SOD SUCC 125 MG/2 ML IVPush SCH ×2 (13:00→19:29)
[2020-03-16 18:58] VITALS: BP 119/76
[2020-03-16] MEDS: DIPHENHYDRAMINE 25 MG CAPSULE PO PRN (21:24)
[2020-03-17] MEDS: methylPREDNISolone SOD SUCC 125 MG/2 ML IVPush SCH ×4 (01:44→21:54)
[2020-03-17] MEDS: HEPARIN 5,000 UNITS/ML, 1ML SQ SCH ×3 (04:58→21:54)
[2020-03-17 08:00] VITALS: BP 173/125
[2020-03-17] MEDS: GUAIFENESIN 200 MG TABLET PO SCH ×4 (09:00→21:55)
[2020-03-17 09:20] LABS: ALANINE AMINOTRANSFERASE 34 U/L (12-78); ALBUMIN 2.9 g/dL (3.4-5.0); ANION GAP 39 mmol/L (5-15); CALCIUM 7.8 mg/dL (8.5-10.1); CHLORIDE 92 mmol/L (98-107)
[2020-03-17 09:23] LABS: ALKALINE PHOSPHATASE 66 U/L (45-117); BILIRUBIN,TOTAL 0.7 mg/dL (0.2-1.0); CREATININE 1.31 mg/dL (0.55-1.02); TOTAL PROTEIN 5.9 g/dL (6.4-8.2)
[2020-03-17] MEDS: BUDESONIDE 0.5 MG/2 ML INHA INH SCH ×2 (09:30→21:00)
[2020-03-17] MEDS: AMOXICILLIN/CLAV 875-125MG TABLET PO SCH ×2 (09:55→21:54)
[2020-03-17] MEDS: BUSPIRONE 10 MG TABLET PO SCH ×2 (09:55→21:54)
[2020-03-17] MEDS: TIOTROPIUM BROMIDE 18 MCG/INH INH SCH (09:57)
[2020-03-17] MEDS: FLUTICASONE/VILANTEROL 100-25MCG/INH INH SCH (09:57)
[2020-03-17] MEDS: CARVEDILOL 12.5 MG TABLET PO SCH ×2 (09:58→17:53)
[2020-03-17] MEDS: ASPIRIN 81 MG TABLET EC PO SCH (09:58)
[2020-03-17] MEDS: AZITHROMYCIN 500 MG TABLET PO SCH (09:59)
[2020-03-17] MEDS: SENNA/DOCUSATE TABLET PO SCH (09:59)
[2020-03-17 11:56] VITALS: BP 142/83
[2020-03-17 13:49] VITALS: BP 125/76
[2020-03-17] MEDS: FUROSEMIDE 20 MG/2 ML IV SCH (16:07)
[2020-03-17 19:27] VITALS: BP 162/82
[2020-03-18 01:14] VITALS: BP 162/82
[2020-03-18] MEDS: methylPREDNISolone SOD SUCC 125 MG/2 ML IVPush SCH ×4 (04:10→21:19)
[2020-03-18 05:14] LABS: BASOPHILS # (AUTO) 0.02 x10^3/uL (0-0.1); BASOPHILS % (AUTO) 0 % (0-1); EOSINOPHILS % (AUTO) 0 % (1-7); LYMPHOCYTES # (AUTO) 0.69 x10^3/uL (1-3.4); LYMPHOCYTES % (AUTO) 5 % (22-44); MD NO; MEAN CORPUSCULAR HEMOGLOBIN 31.8 pg (27.0-34.8); MEAN CORPUSCULAR HGB CONC 32.3 g/dL (32.4-35.8); MEAN CORPUSCULAR VOLUME 98.4 fL (80-100); MEAN PLATELET VOLUME 8.1 fL (7.4-10.4); MONOCYTES # (AUTO) 0.42 x10^3/uL (0.2-0.8); MONOCYTES % (AUTO) 3 % (2-9); NEUTROPHILS % (AUTO) 92 % (42-75); PLATELET COUNT 217 x10^3/uL (130-400); RED CELL DISTRIBUTION WIDTH 20.7 % (9.6-15.2)
[2020-03-18 05:21] LABS: ALANINE AMINOTRANSFERASE 36 U/L (12-78); ALBUMIN 3.1 g/dL (3.4-5.0); ANION GAP 7 mmol/L (5-15); CALCIUM 8.9 mg/dL (8.5-10.1); CHLORIDE 109 mmol/L (98-107); CREATININE 1.53 mg/dL (0.55-1.02)
[2020-03-18 05:23] LABS: ALKALINE PHOSPHATASE 73 U/L (45-117); BILIRUBIN,TOTAL 0.7 mg/dL (0.2-1.0); TOTAL PROTEIN 6.4 g/dL (6.4-8.2)
[2020-03-18 06:04] VITALS: BP 148/86
[2020-03-18] MEDS: HEPARIN 5,000 UNITS/ML, 1ML SQ SCH ×3 (06:09→21:00)
[2020-03-18] MEDS: GUAIFENESIN 200 MG TABLET PO SCH ×4 (06:10→21:00)
[2020-03-18] MEDS: CARVEDILOL 12.5 MG TABLET PO SCH ×2 (06:10→17:18)
[2020-03-18] MEDS: ASPIRIN 81 MG TABLET EC PO SCH (06:10)
[2020-03-18] MEDS: FUROSEMIDE 20 MG/2 ML IV SCH ×2 (08:08→17:18)
[2020-03-18] MEDS: FLUTICASONE/VILANTEROL 100-25MCG/INH INH SCH (08:43)
[2020-03-18] MEDS: TIOTROPIUM BROMIDE 18 MCG/INH INH SCH (08:43)
[2020-03-18] MEDS: BUSPIRONE 10 MG TABLET PO SCH ×2 (08:44→21:00)
[2020-03-18] MEDS: AMOXICILLIN/CLAV 875-125MG TABLET PO SCH ×2 (08:44→21:00)
[2020-03-18] MEDS: AZITHROMYCIN 500 MG TABLET PO SCH (08:44)
[2020-03-18] MEDS: SENNA/DOCUSATE TABLET PO SCH (08:46)
[2020-03-18] MEDS: BUDESONIDE 0.5 MG/2 ML INHA INH SCH ×2 (10:38→21:00)
[2020-03-18] MEDS ORDERED: ALBUTEROL-IPRATROPIUM MDI INH INH SCH ×2 (13:00→15:00)
[2020-03-18] MEDS: DIPHENHYDRAMINE 25 MG CAPSULE PO PRN (14:04)
[2020-03-18 14:28] VITALS: BP 133/76
[2020-03-18] MEDS: ALBUTEROL-IPRATROPIUM MDI INH INH SCH ×3 (16:00→23:00)
[2020-03-18 19:48] VITALS: BP 145/86
[2020-03-18] MEDS ORDERED: BUSPIRONE 5 MG TABLET ONE (20:48)
[2020-03-19 00:48] VITALS: BP 154/82
[2020-03-19] MEDS: BUSPIRONE 10 MG TABLET PO SCH ×3 (01:12→22:16)
[2020-03-19] MEDS: AMOXICILLIN/CLAV 875-125MG TABLET PO SCH ×3 (01:12→22:16)
[2020-03-19] MEDS: ALBUTEROL-IPRATROPIUM MDI INH INH SCH ×5 (01:13→22:17)
[2020-03-19] MEDS: DIPHENHYDRAMINE 25 MG CAPSULE PO PRN ×3 (01:16→22:16)
[2020-03-19] MEDS: methylPREDNISolone SOD SUCC 125 MG/2 ML IVPush SCH ×4 (05:45→22:16)
[2020-03-19] MEDS: HEPARIN 5,000 UNITS/ML, 1ML SQ SCH ×3 (05:45→22:16)
[2020-03-19] MEDS: ASPIRIN 81 MG TABLET EC PO SCH (05:45)
[2020-03-19] MEDS: CARVEDILOL 12.5 MG TABLET PO SCH ×2 (05:45→16:14)
[2020-03-19] MEDS: GUAIFENESIN 200 MG TABLET PO SCH ×4 (05:45→22:16)
[2020-03-19 06:08] LABS: BASOPHILS # (AUTO) 0.02 x10^3/uL (0-0.1); BASOPHILS % (AUTO) 0 % (0-1); EOSINOPHILS % (AUTO) 0 % (1-7); LYMPHOCYTES # (AUTO) 0.55 x10^3/uL (1-3.4); LYMPHOCYTES % (AUTO) 4 % (22-44); MD NO; MEAN CORPUSCULAR HEMOGLOBIN 31.9 pg (27.0-34.8); MEAN CORPUSCULAR HGB CONC 32.4 g/dL (32.4-35.8); MEAN CORPUSCULAR VOLUME 98.6 fL (80-100); MEAN PLATELET VOLUME 7.9 fL (7.4-10.4); MONOCYTES # (AUTO) 0.53 x10^3/uL (0.2-0.8); MONOCYTES % (AUTO) 4 % (2-9); NEUTROPHILS # (AUTO) 11.75 x10^3/uL (1.8-6.8); NEUTROPHILS % (AUTO) 92 % (42-75); PLATELET COUNT 205 x10^3/uL (130-400); RED BLOOD COUNT 4.02 x10^6/uL (3.82-5.3); RED CELL DISTRIBUTION WIDTH 20.3 % (9.6-15.2)
[2020-03-19 06:14] LABS: CHLORIDE 107 mmol/L (98-107)
[2020-03-19 06:21] LABS: ALANINE AMINOTRANSFERASE 36 U/L (12-78); ALBUMIN 3.1 g/dL (3.4-5.0); ALKALINE PHOSPHATASE 67 U/L (45-117); ANION GAP 8 mmol/L (5-15); BILIRUBIN,TOTAL 0.9 mg/dL (0.2-1.0); CREATININE 1.47 mg/dL (0.55-1.02); TOTAL PROTEIN 6.2 g/dL (6.4-8.2)
[2020-03-19 07:25] VITALS: BP 135/81
[2020-03-19] MEDS: FUROSEMIDE 20 MG/2 ML IV SCH ×2 (07:35→16:21)
[2020-03-19] MEDS: FLUTICASONE/VILANTEROL 100-25MCG/INH INH SCH (08:00)
[2020-03-19] MEDS: AZITHROMYCIN 500 MG TABLET PO SCH (08:01)
[2020-03-19] MEDS: SENNA/DOCUSATE TABLET PO SCH (08:01)
[2020-03-19 13:49] VITALS: BP 144/83
[2020-03-19 19:10] VITALS: BP 149/75
[2020-03-20] MEDS: ALBUTEROL-IPRATROPIUM MDI INH INH SCH ×4 (02:27→11:02)
[2020-03-20] MEDS: HEPARIN 5,000 UNITS/ML, 1ML SQ SCH ×2 (05:00→12:43)
[2020-03-20 05:05] VITALS: BP 159/83
[2020-03-20] MEDS: CARVEDILOL 12.5 MG TABLET PO SCH (05:14)
[2020-03-20] MEDS: GUAIFENESIN 200 MG TABLET PO SCH ×2 (05:14→10:57)
[2020-03-20] MEDS: ASPIRIN 81 MG TABLET EC PO SCH (05:14)
[2020-03-20] MEDS: methylPREDNISolone SOD SUCC 125 MG/2 ML IVPush SCH ×2 (05:14→09:06)
[2020-03-20 07:08] VITALS: BP 154/91
[2020-03-20] MEDS: FUROSEMIDE 20 MG/2 ML IV SCH (07:41)
[2020-03-20] MEDS: BUSPIRONE 10 MG TABLET PO SCH (09:03)
[2020-03-20] MEDS: SENNA/DOCUSATE TABLET PO SCH (09:03)
[2020-03-20] MEDS: AZITHROMYCIN 500 MG TABLET PO SCH (09:03)
[2020-03-20] MEDS: AMOXICILLIN/CLAV 875-125MG TABLET PO SCH (09:03)
[2020-03-20] MEDS: FLUTICASONE/VILANTEROL 100-25MCG/INH INH SCH (09:08)
[2020-03-20] MEDS ORDERED: FUROSEMIDE 40 MG TABLET PO SCH (09:30)
[2020-03-20] MEDS: DIPHENHYDRAMINE 25 MG CAPSULE PO PRN (11:01)
[2020-03-20] MEDS ORDERED: IPRA3AMP30 INH (11:56)
[2020-03-20] MEDS ORDERED: AZIT500T10 PO (11:56)
[2020-03-20] MEDS ORDERED: GUAI200T37 PO (11:56)
[2020-03-20] MEDS ORDERED: AMOX1TAB12 PO (11:56)
== END 2020-03-20 14:03 | disposition home or self-care (01) | DRG 193 ==
LOC: ED 20:16 → EDIP 21:07 → 4EST 22:20 → 3N 03-14 18:08
PROVIDERS: ADMIT Family Medicine; ATTEND Internal Medicine
DX: J15.9 Unspecified bacterial pneumonia (principal); N17.0 Acute kidney failure with tubular necrosis; I13.0 Hypertensive heart and chronic kidney disease with heart failure and stage 1 through stage 4 chronic kidney disease, or unspecified chronic kidney disease; J44.0 Chronic obstructive pulmonary disease with (acute) lower respiratory infection; J44.1 Chronic obstructive pulmonary disease with (acute) exacerbation; J96.11 Chronic respiratory failure with hypoxia; I50.40 Unspecified combined systolic (congestive) and diastolic (congestive) heart failure; Z68.43 Body mass index [BMI] 50.0-59.9, adult; E66.01 Morbid (severe) obesity due to excess calories; F17.210 Nicotine dependence, cigarettes, uncomplicated; F32.9 Major depressive disorder, single episode, unspecified; I07.1 Rheumatic tricuspid insufficiency; I50.82 Biventricular heart failure; E87.6 Hypokalemia; E11.22 Type 2 diabetes mellitus with diabetic chronic kidney disease; N18.3 Chronic kidney disease, stage 3 (moderate); Z99.81 Dependence on supplemental oxygen; Z03.818 Encounter for observation for suspected exposure to other biological agents ruled out; Z71.6 Tobacco abuse counseling
CPT/HCPCS: 36415; 71045; 76770; 80048; 80053; 80069; 81003; 83036; 83605; 83735; 83880; 84145; 84484; 85025; 87040; 87635; 93005; G0378; J0456; J0696; J1644; J1940; J2920; J2930; J7030; J7050; J7512; Q0163